=== PATIENT | male | born 1940 | race Caucasian/White ===

== ENCOUNTER 2019-10-25 12:20 | Outpatient (CLI) | payer MEDICARE, BC, SELFPAY ==
--- NOTE | ~2019-10-25 | XR_ITS ---
XR chest 2V w apical lordotic DATE: 10/25/2019 13:03 INDICATION: Cough. Chronic sinusitis. TECHNIQUE: PA and lateral views, apical lordotic view of the apices COMPARISON: 04/13/2019 PA and lateral chest FINDINGS: No pulmonary infiltrate or consolidation. Heart size appears within normal range is aortic calcification and mild unfolding. No hilar or medias tinal enlargement. No pleural effusion or pulmonary vascular congestion or pneumothorax is detected. Mild left apical capping. Scoliosis and degenerative change of the thoracic and lumbar spine. IMPRESSION: No active cardiopulmonary disease or significant change since 04/13/2019 Reviewed, dictated and finalized at Location A. Reviewed, dictated and finalized at location B. CAL SUPPORT SPECIALIST IMPRESSION: No active cardiopulmonary disease or significant change since 2018
--- NOTE | ~2019-10-25 | XR_ITS ---
XR sinus <3V DATE: 10/25/2019 13:03 INDICATION: Cough, chronic sinusitis TECHNIQUE: 5 views COMPARISON: None FINDINGS: The frontal sinuses are minimally developed. The ethmoid air cells, maxillary and sphenoid sinuses appear normally developed and aerated. The mastoid air cells appear normally developed and ae rated. Prominent rightward deviation of the nasal septum. IMPRESSION: Clear paranasal sinuses and mastoid air cells Reviewed, dictated and finalized at location B. OMER FACILITIES SUPERVISOR
[2019-10-27 21:16] LABS: Immunoglobulin A 334 mg/dL (70-320); Immunoglobulin G 940 mg/dL (600-1540); Immunoglobulin M 67 mg/dL (50-300)
[2019-10-28 05:25] LABS: Immunoglobulin E 544 kU/L (<=114)
== END 2019-10-25 12:21 | disposition home or self-care (01) ==
LOC: ANHIMG 12:35
PROVIDERS: PCP Internal Medicine; Visit Provider Internal Medicine
DX: J32.9 Chronic sinusitis, unspecified (principal); R05 Cough; J34.89 Other specified disorders of nose and nasal sinuses
CPT/HCPCS: 36415; 70210; 71047; 82784; 82785

== ENCOUNTER 2020-11-15 12:47 | Outpatient (CLI) | payer MEDICARE, BC, SELFPAY ==
--- NOTE | 2020-11-15 | ECHO_ITS ---
Patient Info Name: Nii Vital Age: 80 years : 1940 Gender: Male Exam Date: 11/15/2020 1:30 PM Exam Location: [facility] Patient Status: Outpatient Admit Date: 11/15/2020 Staff Ordering Physician: Harjeet Greene MD Senior Medical Technologist: Jacqueline Ramesh RCS Attending Provider: Harjeet Greene MD Exam Type: CA echo doppler color flow Study Info Indications R00.2 - Palpitations Complete two-dimensional, color flow and Doppler transthoracic echocardiogram is performed. Summary 1. Left ventricular chamber dimension is normal. 2. Left ventricular systolic function is normal, estimated at 60-65%. 3. There is mildly increased left ventricular wall thickness. 4. The left ventricular diastolic function is grade I diastolic dysfunction. 5. E/e' 12 is mildly elevated. 6. Left atrial chamber dimension is mildly enlarged. 7. There is mild aortic valve sclerosis. 8. There is mild aortic valve regurgitation. 9. No pulmonary hypertension, estimated pulmonary arterial systolic pressure is 34 mmHg. Left Ventricle E/e' 12 is mildly elevated. Left ventricular chamber dimension is normal. Left ventricular systolic function is normal, estimated at 60-65%. There is mildly increased left ventricular wall thickness. The left ventricular diastolic function is grade I diastolic dysfunction. Right Ventricle Right ventricular chamber dimension is normal. Right ventricular systolic function is normal. Left Atria Left atrial chamber dimension is mildly enlarged. Right Atria Right atrial chamber dimension is normal. Aortic Valve The aortic valve is trileaflet. There is mild aortic valve sclerosis. There is no aortic valve stenosis. There is mild aortic valve regurgitation. Pulmonic Valve There is no pulmonic regurgitation. Mitral Valve There is no mitral valve stenosis. There is no mitral valve regurgitation. Tricuspid Valve There is no tricuspid valve regurgitation. No pulmonary hypertension, estimated pulmonary arterial systolic pressure is 34 mmHg. Pericardium/Pleural There is no pericardial effusion. Inferior Vena Cava Normal inferior vena cava with >50% collapse upon inspiration consistent with normal right atrial pressure, 5 mmHg. Aorta The aortic root size at the sinus of Valsalva is normal. Left Ventricular Outflow Tract Name Value Normal LVOT 2D LVOT Diameter 2.0 cm LVOT Doppler LVOT Peak Gradient 4 mmHg LVOT Mean Gradient 2 mmHg LVOT VTI 24 cm LVOT VTI/AV VTI Ratio 0.9 LVOT Stroke Volume 74 ml LVOT CO 4.8 l/min LVOT CI 1.9 l/min/m2 Pulmonic Valve Name Value Normal RVOT Doppler RVOT Peak Gradient 2 mmHg PV D
--- NOTE | 2020-11-15 15:44 | ECHO_ITS ---
Patient Info Name: Nii Vital Age: 80 years : 1940 Gender: Male Ht: 69 in Wt: 196 lbs BSA: 2.10 m2 HR: 60 bpm BP: 172 / 76 mmHg Technical Quality: Fair Exam Date: 11/15/2020 1:26 PM Exam Location: [facility] Patient Status: Outpatient Admit Date: 11/15/2020 Staff Ordering Physician: Harjeet Greene MD Facilities Assistant: Jacqueline Ramesh RDCS Attending Provider: Harjeet Greene MD Exam Type: CA echo doppler color flow Study Info Complete two-dimensional, color flow and Doppler transthoracic echocardiogram is performed with contrast to opacify the left ventricle and to improve the deliniation of the left ventricle endocardial borders. Contrast/Agitated Saline Contrast/Ag. Saline: Definity Amount: --- ml Summary 1. Left ventricular chamber dimension is mildly enlarged. 2. Definity contrast administered improved wall motion interpretation. 3. Left ventricular systolic function is normal, estimated at 60-65%. 4. The left ventricular diastolic function is grade II diastolic dysfunction. 5. E/e' 7 is not elevated. 6. Left atrial chamber dimension is mildly enlarged. Left Ventricle Definity contrast administered improved wall motion interpretation. E/e' 7 is not elevated. Left ventricular chamber dimension is mildly enlarged. Left ventricular systolic function is normal, estimated at 60-65%. The left ventricular diastolic function is grade II diastolic dysfunction. Right Ventricle Right ventricular chamber dimension is normal. Right ventricular systolic function is normal. Left Atria Left atrial chamber dimension is mildly enlarged. Right Atria Right atrial chamber dimension is normal. Aortic Valve The aortic valve is trileaflet. There is no aortic valve stenosis. There is no aortic valve regurgitation. Pulmonic Valve There is no pulmonic regurgitation. Mitral Valve There is no mitral valve stenosis. There is no mitral valve regurgitation. Tricuspid Valve There is no tricuspid valve regurgitation. Pericardium/Pleural There is no pericardial effusion. Inferior Vena Cava Normal inferior vena cava with >50% collapse upon inspiration consistent with normal right atrial pressure, 5 mmHg. Aorta The aortic root size at the sinus of Valsalva is normal. Tricuspid Valve Name Value Normal Estimated PAP/RSVP RA Pressure 5 mmHg <=5 Report Signatures
== END 2020-11-15 12:48 | disposition home or self-care (01) ==
LOC: ANHCARD 12:48
PROVIDERS: PCP Internal Medicine; Visit Provider Internal Medicine
DX: R00.2 Palpitations (principal); I75.021 Atheroembolism of right lower extremity
CPT/HCPCS: 93306

== ENCOUNTER 2021-02-28 09:51 | Outpatient (CLI) | payer MEDICARE, BC, SELFPAY ==
[2021-02-28 10:12] LABS: Add Urine Microscopic? YES; Appearance Urine Clear (Clear); Bilirubin Urine Negative (Negative); Blood Urine Negative (Negative); Color Urine Yellow (Yellow); Glucose Urine UA Negative (Negative); Ketones Urine Negative (Negative); Leukocyte Esterase Ur Negative LEU/UL (Negative); Mucus Urine Rare /lpf; Nitrate Urine Negative (Negative); Protein Urine Negative (Negative); RBC Urine 0-2 /hpf (0-2); Specific Grav Ur 1.013 (1.001-1.035); Squamous Epithelial Cell Urine Rare /hpf (Few); Urobilinogen Urine Negative mg/dL (<2.0); WBC Urine 0-3 /hpf
== END 2021-02-28 09:52 | disposition home or self-care (01) ==
PROVIDERS: PCP Internal Medicine; Visit Provider Internal Medicine
DX: R39.9 Unspecified symptoms and signs involving the genitourinary system (principal)
CPT/HCPCS: 81001

== ENCOUNTER 2021-03-16 19:12 | Emergency (ER) | payer MEDICARE, BC, SELFPAY ==
[2021-03-16] VITALS (11 sets, daily range): BP systolic 136–219; BP diastolic 63–89; PULSE 75–91; RESP 15–32; TEMP 37.7; O2SAT 96–99
--- NOTE | ~2021-03-16 | XR_ITS ---
XR chest 1V portable 03/16/2021 22:39 Indication: Fever and nausea. Hypertension. Prostate cancer. Procedure: AP portable chest Comparison: Comparison to multiple prior studies sequentially, with oldest reviewed study dated 11/2013. Findings: Heart size is normal. No focal air space disease, pulmonary edema, pleural effusion or susp ected pneumothorax. Shallow inspiration with crowding of the pulmonary vessels. Impression: 1: No acute cardiopulmonary disease. Reviewed, dictated and finalized at location A. Impression: 1: No acute cardiopulmonary disease.
[2021-03-16 19:35] LABS: Basophils Percent Auto 0.4 % (0.2-1.2); Eosinophils Absolute Auto 0.1 K/mm3 (0-0.3); Hematocrit 46.1 % (42.0-52.0); Hemoglobin 14.9 g/dL (14.0-18.0); Immature Granulocyte Absolute 0.02 K/mm3 (0.00-0.031); Immature Granulocyte Percent A 0.2 % (0-0.5); Lymphocytes Absolute Auto 0.83 K/mm3 (0.9-3.2); Lymphocytes Percent Auto 8.8 % (18.3-44.2); Mean Corpuscular HGB Conc 32.3 g/dl (32-36); Mean Corpuscular Hemoglobin 31.2 pg (26-34); Mean Corpuscular Volume 96.4 fl (80-100); Mean Platelet Volume 10.9 fl (7.4-10.4); Monocytes Absolute Auto 0.3 K/mm3 (0.1-0.6); Monocytes Percent Auto 3.4 % (2.6-8.5); Neutrophils Absolute Auto 8.1 K/mm3 (1.3-6.7); Neutrophils Percent Auto 86.2 % (45.5-73.1); Platelet Count Result 187 k/mm3 (150-375); Red Blood Count 4.78 M/mm3 (4.6-6.20); Red Cell Distribution Width 13.8 % (11.5-14.5); White Blood Count 9.4 K/mm3 (4.5-10.0)
--- NOTE | 2021-03-16 19:36 | ECG_ITS ---
Measurements Intervals [place] Rate: 87 P: -13 CA: 148 QRS: -50 QRSD: 130 T: -7 QT: 382 QTc: 461 Interpretive Statements SINUS RHYTHM RIGHT BUNDLE BRANCH BLOCK VOLTAGE CRITERIA FOR LVH BASELINE ARTIFACT- I, II, III, AVR, AVL, AVF ABNORMAL ECG Electronically Signed On 03-21-2021 11:31:08 CDT by Benjamin Mcarthur D.O.
[2021-03-16 19:49] LABS: Alanine Aminotransferase 22 U/L (4-50); Albumin Level 4.7 g/dL (3.5-5.1); Alkaline Phosphatase 69 U/L (38-126); Anion Gap 8 mmol/L (8-16); Aspartate Amino Transferase 36 U/L (17-59); Bilirubin,Total 0.8 mg/dL (0.2-1.3); Blood Urea Nitrogen 20 mg/dL (9-20); Calcium 9.5 mg/dL (8.4-10.2); Carbon Dioxide 30 mmol/L (22-30); Chloride 104 mmol/L (98-107); Estimated CRCL calculation 45 ml/min; Estimated Glomerular Filt Rate > 60; Glucose 97 mg/dL (75-110); Lipase 251 U/L (23-300); Potassium 4.7 mmol/L (3.4-5.0); Sodium 142 mmol/L (137-145)
[2021-03-16 19:56] LABS: Add Urine Microscopic? YES; Appearance Urine Clear (Clear); Bilirubin Urine Negative (Negative); Blood Urine Negative (Negative); Color Urine Yellow (Yellow); Glucose Urine UA Negative (Negative); Ketones Urine Trace mg/dL (Negative); Leukocyte Esterase Ur Negative LEU/UL (Negative); Mucus Urine Rare /lpf; Nitrate Urine Negative (Negative); Protein Urine 2+ mg/dL (Negative); RBC Urine 0-2 /hpf (0-2); Specific Grav Ur 1.015 (1.001-1.035); Urobilinogen Urine Negative mg/dL (<2.0); WBC Urine 0-3 /hpf
--- NOTE | 2021-03-16 20:20 | PC.NURSE ---
Updated pt spouse by phone at this time.
--- NOTE | 2021-03-16 20:21 | ED.GENADULT ---
HPI - General Adult General Chief complaint: Nausea/Vomiting/Diarrhea Stated complaint: shakes, chattering teeth, nausea Time Seen by Provider: 03/16/21 19:46 Source: patient Mode of arrival: ambulatory Limitations: no limitations History of Present Illness HPI narrative: Patient is 80 years old white male came to the emergency room complaining of sudden onset of chills and teeth chattering started at 5 PM lasted for 1-1/2-hour then resolved. Patient also complaining of general weakness today. Patient reports a lot of physical activity today more than his normal daily activity. Patient made 4000 steps today walking the dog and running errands and hot weather today. Patient denies any fever, nausea, vomiting, chest pain, shortness of breath, sore throat, coughing, respiratory symptoms, back pain or urinary symptoms. Blood pressure on arrival was 219/89 which consider extremely high for the patient. Patient been vaccinated for COVID-19 months ago Related Data Home Medications Medication Instructions Recorded Confirmed atorvastatin 10 mg tablet 10 mg PO DAILY 08/08/19 11/06/20 carvedilol 6.25 mg tablet 6.25 mg PO Q12H 08/08/19 11/06/20 rivaroxaban 20 mg tablet 20 mg PO DAILY 08/08/19 11/06/20 cyanocobalamin (vitamin B-12) 1,000 mcg PO DAILY 07/03/20 11/06/20 1,000 mcg tablet melatonin 3 mg tablet mg PO 11/06/20 11/06/20 Allergies Allergy/AdvReac Type Severity Reaction Status Date / Time Sulfa (Sulfonamide AdvReac Unknown Diarrhea Verified 11/06/20 10:11 Antibiotics) Review of Systems Review of Systems: Narrative: CONSTITUTIONAL: Denies fever, chills, or sweats. EYES: Denies visual changes, redness, or discharge. ENT: Denies rhinorrhea, congestion, sore throat, or otalgia. CARDIOVASCULAR: Denies chest pain, palpitations, or edema. RESPIRATORY: Denies cough or dyspnea. GASTROINTESTINAL: Denies abdominal pain, nausea, vomiting, or diarrhea. GENITOURINARY: Denies dysuria or hematuria. SKIN: Denies rash or itching. MUSCULOSKELETAL: Denies back pain, joint pain, or myalgia. NEUROLOGIC: Denies headache, numbness, or weakness. PSYCHIATRIC: Denies anxiety or depression. [facility] Past Medical History Medical History Abnormal ankle brachial index (LIBAN) Abnormal finding of blood chemistry Acute DVT (deep venous thrombosis) Benign essential hypertension BMI 30.0-30.9,adult CAD (coronary artery disease) Cough DVT (deep venous thrombosis) Elevated PSA Encounter for Medicare annual wellness exam Encounter for routine adult health examination without abnormal findings Frequent sinus infections Heart palpitations Hyperlipidemia IGT (impaired glucose tolerance) On chcf drug therapy Pre-diabetes Prostate cancer Prostate cancer screening RBBB (right bundle branch block) Sinus pain Sore throat URI (upper respiratory infection) Vitamin D deficiency Family History Family History Father Family history of thoracic aortic aneurysm Social History Social History Smoking status: Never smoker Alcohol intake: never Exam Narrative: Exam Narrative: General appearance: Well-developed, well-nourished, looks weak Skin: Normal color Head: Normocephalic, nontraumatic Eyes: Clear conjunctiva ENT: Oropharynx normal, ears normal, nose normal Neck: Supple, nontender Chest and respiratory: Airway patent, no respiratory distress, no accessory muscle use Heart: Regular rate/rhythm Abdomen: Soft, nontender, no organomegaly, quiet bowel sounds Vascular: Normal peripheral pulses, normal capillary refill. Musculoskeletal: Normal range of motion, nontender back Neurologic: Alert and oriented ?3, CASH MANAGEMENT OFFICER is normal as tested, no gross motor deficit
[2021-03-16] MEDS: SODIUM CHLORIDE 0.9% IV 1,000 ML 999 ML IV CONT ×2 (20:39→20:40)
[2021-03-16 20:44] LABS: CRP < 0.5 mg/dL (<1.0)
[2021-03-16 20:59] LABS: Lactic Acid Reflex 1.3 mmol/L (0.7-2.1)
[2021-03-16 21:01] LABS: INR 1.6; Partial Thromboplastin Time 31.4 SECONDS (22.3-36.8); Prothrombin Time 19.9 Seconds (11.1-14.7)
[2021-03-16] MEDS: ACETAMINOPHEN 500 MG TABLET 1000 MG PO (21:18)
--- NOTE | 2021-03-16 22:00 | PC.NURSE ---
Lebetalol not required, cancelled order.
== END 2021-03-16 23:40 | disposition home or self-care (01) ==
PROVIDERS: Emergency Medicine; Emergency Provider Emergency Medicine; PCP Internal Medicine
DX: B34.9 Viral infection, unspecified (principal); T67.5XXA Heat exhaustion, unspecified, initial encounter; I10 Essential (primary) hypertension; I25.10 Atherosclerotic heart disease of native coronary artery without angina pectoris; E78.5 Hyperlipidemia, unspecified; Z86.718 Personal history of other venous thrombosis and embolism; R73.03 Prediabetes; Z85.46 Personal history of malignant neoplasm of prostate; E55.9 Vitamin D deficiency, unspecified; I45.10 Unspecified right bundle-branch block; R94.31 Abnormal electrocardiogram [ECG] [EKG]; Z79.01 Long term (current) use of anticoagulants; X30.XXXA Exposure to excessive natural heat, initial encounter
CPT/HCPCS: 36415; 71045; 80053; 81001; 83605; 83690; 85025; 85610; 85730; 86140; 87040; 87070; 87076; 87880; 93005; 96360; 96361; 99283; A9270; J7030

== ENCOUNTER 2021-08-26 12:24 | Outpatient (CLI) | payer MEDICARE, BC, SELFPAY ==
--- NOTE | ~2021-08-26 | XR_ITS ---
EXAMINATION: XR thoracic spine 3V DATE: 08/26/2021 12:54 INDICATION: Dorsalgia TECHNIQUE: AP, lateral and lateral swimmer's views of the thoracic spine were obtained. COMPARISON: 03/16/2021 FINDINGS: There are 40 degrees upper thoracic levoscoliosis. There is no fracture. Bone alignment is normal. The vertebral body heights are maintained. There is mild loss of intervertebral disc space he ight throughout the thoracic spine. Moderate spondylosis is noted in the visualized cervical spine. IMPRESSION: 1. Moderate thoracic spondylosis without acute findings. Reviewed, dictated and finalized at location A. RATORY ANIMAL CARETAKER
--- NOTE | ~2021-08-26 | XR_ITS ---
EXAMINATION: XR abdomen/kub 1V INDICATION: Back pain TECHNIQUE: Supine views of the abdomen were obtained on 2 radiographs. COMPARISON: CT, 07/12/2018 FINDINGS: No urolithiasis is identified. Phleboliths are noted in the pelvis. The bowel gas pattern i s normal. There is severe lumbar spondylosis. Mild osteoarthritis is noted in the hips. IMPRESSION: 1. No urolithiasis identified. Reviewed, dictated and finalized at location A. LOPMENTAL EDUCATION INSTRUCTOR
== END 2021-08-26 12:25 | disposition home or self-care (01) ==
PROVIDERS: PCP Internal Medicine; Visit Provider Internal Medicine
DX: M47.815 Spondylosis without myelopathy or radiculopathy, thoracolumbar region (principal); M16.0 Bilateral primary osteoarthritis of hip
CPT/HCPCS: 72072; 74018

== ENCOUNTER 2022-04-28 14:11 | Outpatient (CLI) | payer MEDICARE, BC, SELFPAY ==
--- NOTE | ~2022-04-28 | XR_ITS ---
XR thoracic spine 3V DATE: 04/28/2022 14:41 INDICATION: Scoliosis TECHNIQUE: AP, lateral and swimmer views COMPARISON: 08/26/2021 thoracic spine FINDINGS: There is reverse S-shaped thoracolumbar scoliosis, with moderate levoscoliosis of the upper thoracic spine, dextroscoliosis of the mid and lower thoracic spine and levoscoliosis of the lumbar spine . There is diffuse osteopenia. There is prominent degenerative disc disease in the lower cervical spine. There is mild degenerative spurring of the thoracic and to a greater extent lumbar spine. No fracture or dislocation or bone destruction of the thoracic spine is detected. No paraspinal soft tissue thickening is noted. IMPRESSION: Reverse S-shaped thoracolumbar scoliosis Osteopenia Prominent degenerative disc disease of the lower cervical spine Spurring of the thoracic and to a greater extent lumbar spine Reviewed, dictated and finalized at location B.
== END 2022-04-28 14:12 | disposition home or self-care (01) ==
PROVIDERS: PCP Internal Medicine; Visit Provider Internal Medicine
DX: M54.9 Dorsalgia, unspecified (principal); M41.85 Other forms of scoliosis, thoracolumbar region; M85.88 Other specified disorders of bone density and structure, other site; M50.30 Other cervical disc degeneration, unspecified cervical region; M77.8 Other enthesopathies, not elsewhere classified
CPT/HCPCS: 72072

== ENCOUNTER 2022-10-01 15:58 | Outpatient (CLI) | payer MEDICARE, BC, SELFPAY ==
[2022-10-01 16:54] LABS: Influenza A QL RT-PCR Negative (Negative); Influenza B QL RT-PCR Negative (Negative); SARS-CoV-2 RNA PCR Negative
== END 2022-10-01 15:59 | disposition home or self-care (01) ==
LOC: ANHLAB 16:00
PROVIDERS: PCP Internal Medicine; Visit Provider Internal Medicine
DX: R68.89 Other general symptoms and signs (principal); Z20.822 Contact with and (suspected) exposure to COVID-19
CPT/HCPCS: 87636

== ENCOUNTER 2024-03-17 08:24 | Outpatient (CLI) | payer MEDICARE, BC, SELFPAY ==
--- NOTE | ~2024-03-17 | XR_ITS ---
XR chest 2V Ordering provider: Harjeet Greene MD History: 83 years Male with . M54.9 - Dorsalgia, UPPER BACK PAIN, NO INJURY, CARDIAC HX . Comparison: March 16, 2021 FINDINGS: MEDIASTINUM: The cardiac silhouette is not enlarged. LUNGS: No infiltrates, effusions or pneumothorax. OTHER: No free air under the diaphragm. Degenerative changes of the spine. IMPRESSION: No acute cardiopulmonary pathology. Reviewed, dictated and finalized at location A.
[2024-03-17 09:58] LABS: Alanine Aminotransferase 19 U/L (6-50); Albumin Level 4.1 g/dL (3.5-5.1); Alkaline Phosphatase 56 U/L (38-126); Amylase 104 U/L (30-110); Anion Gap 6 mmol/L (4-12); Aspartate Amino Transferase 31 U/L (17-59); Bilirubin,Total 0.8 mg/dL (0.2-1.3); Blood Urea Nitrogen 18 mg/dL (9-20); Carbon Dioxide 29 mmol/L (22-30); Chloride 104 mmol/L (98-107); Estimated Glomerular Filt Rate > 60; Glucose 98 mg/dL (65-110); Lipase 113 U/L (23-300); Potassium 4.8 mmol/L (3.4-5.0); Sodium 139 mmol/L (137-145)
== END 2024-03-17 08:25 | disposition home or self-care (01) ==
PROVIDERS: PCP Internal Medicine; Visit Provider Internal Medicine
DX: M54.9 Dorsalgia, unspecified (principal); R10.11 Right upper quadrant pain
CPT/HCPCS: 36415; 71046; 80053; 82150; 83690

== ENCOUNTER 2024-03-26 08:20 | Outpatient (CLI) | payer MEDICARE, BC, SELFPAY ==
--- NOTE | ~2024-03-26 | US_ITS ---
EXAMINATION: US abdomen limited DATE: 03/26/2024 08:41 INDICATION: R10.11 - Right upper quadrant pain TECHNIQUE: Multiple grayscale and Doppler ultrasound images of limited portions of the abdomen were o btained. COMPARISON: None available. FINDINGS: Pancreas obscured by bowel gas. The liver is normal with normal echogenicity and echotextur e. No surface nodularity. Normal hepatopetal flow in the main portal vein. The gallbladder is normal with no abnormal wall thickening, pericholecystic fluid or stones. The common bile duct measures 3 mm . There was no sonographic Faust sign. IMPRESSION: Pancreas not visualized. Otherwise normal limited abdominal ultrasound findings. Reviewed, dictated and finalized at location K. IMPRESSION: Pancreas not visualized. Otherwise normal limited abdominal ultrasound findings .
== END 2024-03-26 08:21 ==
LOC: MICIMG 08:21
PROVIDERS: PCP Internal Medicine; Visit Provider Internal Medicine
DX: R10.11 Right upper quadrant pain (principal)
CPT/HCPCS: 76705

== ENCOUNTER 2024-09-29 08:34 | Outpatient (CLI) | payer MEDICARE, BC, SELFPAY ==
--- NOTE | ~2024-09-29 | XR_ITS ---
EXAMINATION: XR knee LT 3V DATE: 09/29/2024 09:06 INDICATION: Left knee pain. TECHNIQUE: 3 views of left knee including upright views were obtained. COMPARISON: None. FINDINGS: Alignment is normal. No fracture. There is severe osteoarthritis of lateral compartment and mild osteoarthritis of medial and patellofemoral compartments. No knee joint effusion. IMPRESSION: 1. Severe left knee osteoarthritis. Reviewed, dictated and finalized at location A. AL SCIENCES LECTURER
[2024-09-29 09:12] LABS: CRP < 0.5 mg/dL (<1.0); Uric Acid 4.6 mg/dL (3.5-8.5)
[2024-09-29 10:14] LABS: Erythrocyte Sedimentation Rate 13 mm/hr (0-20)
== END 2024-09-29 08:35 | disposition home or self-care (01) ==
PROVIDERS: PCP Internal Medicine; Visit Provider Internal Medicine
DX: I82.402 Acute embolism and thrombosis of unspecified deep veins of left lower extremity (principal); I82.409 Acute embolism and thrombosis of unspecified deep veins of unspecified lower extremity; G62.9 Polyneuropathy, unspecified; M17.12 Unilateral primary osteoarthritis, left knee; Z79.899 Other long term (current) drug therapy
CPT/HCPCS: 36415; 73562; 84550; 85652; 86140

== ENCOUNTER 2024-12-07 10:44 | Outpatient (CLI) | payer MEDICARE, BC, SELFPAY ==
[2024-12-07 11:22] LABS: Basophils Percent Auto 0.4 % (0.2-1.2); Eosinophils Percent Auto 0.4 % (0-4.4); Immature Granulocyte Absolute 0.01 K/mm3 (0.00-0.031); Immature Granulocyte Percent A 0.2 % (0-0.5); Lymphocytes Absolute Auto 1.03 K/mm3 (0.9-3.2); Lymphocytes Percent Auto 18.4 % (18.3-44.2); Mean Corpuscular HGB Conc 32.6 g/dl (32-36); Mean Corpuscular Hemoglobin 31.5 pg (26-34); Mean Corpuscular Volume 96.8 fl (80-100); Mean Platelet Volume 10.8 fl (7.4-10.4); Monocytes Absolute Auto 0.6 K/mm3 (0.1-0.6); Monocytes Percent Auto 11.4 % (2.6-8.5); Neutrophils Absolute Auto 3.9 K/mm3 (1.3-6.7); Neutrophils Percent Auto 69.2 % (45.5-73.1); Platelet Count Result 177 k/mm3 (150-375); Red Blood Count 4.44 M/mm3 (4.6-6.20); Red Cell Distribution Width 14.2 % (11.5-14.5); White Blood Count 5.6 K/mm3 (4.5-10.0)
[2024-12-07 11:41] LABS: Alanine Aminotransferase 28 U/L (6-50); Alkaline Phosphatase 56 U/L (38-126); Anion Gap 8 mmol/L (4-12); Aspartate Amino Transferase 35 U/L (17-59); Bilirubin,Total 0.5 mg/dL (0.2-1.3); Blood Urea Nitrogen 18 mg/dL (9-20); Calcium 8.9 mg/dL (8.4-10.2); Carbon Dioxide 30 mmol/L (22-30); Chloride 99 mmol/L (98-107); Cholesterol 130 mg/dL (0-200); Estimated Glomerular Filt Rate > 60; Glucose 93 mg/dL (65-110); HDL Direct 53 mg/dL; Sodium 137 mmol/L (137-145); Triglycerides 89 mg/dL (<150)
[2024-12-07 11:52] LABS: LDL Cholesterol Direct 39 mg/dL
[2024-12-07 12:03] LABS: Free T4 Free Thyroxine 1.11 ng/dL (0.78-2.19)
[2024-12-07 12:23] LABS: Hemoglobin A1C 5.6 % (<5.7)
--- OUTSIDE RECORDS SUMMARY | 2024-12-07 12:26 | XMS_ITS ---
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 His a right 2nd toe wound is almost healed and his discoloration is getting better. He is still having some pain of the toes. He remains on aspirin and Xarelto. He has no identifiable cause of the emboli in his arterial system. He underwent ECHO which was normal. Plan is to continue on the Xarelto an aspirin. I will have him follow up in 3 months but he can call sooner if there are any concerns. Assessment & Plan (11/08/2020 1:36 PM CANOE MAKER): Patient has blue toe syndrome of his bilateral lower extremities with small ulceration of his right lower extremity. He has palpable DP and PT pulses with normal ABIs. Plan will be for an echo which his primary physician is already ordered and will plan for a CTA of his chest abdomen pelvis with runoff. I discussed with him that likely he has some sore showering small emboli down to his toes and this is what we were looking for. We will discuss what the plan will be after these imaging studies are done to see if there is anything that needs to surgically be done for him. He will continue on the Xarelto an aspirin at this time. He understands and is willing to proceed. 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 He is maintained on Xarelto. Assessment & Plan (11/08/2020 1:29 PM CANOE MAKER): Patient is on Xarelto for recurrent DVTs. 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 Assessment & Plan (11/08/2020 1:34 PM CANOE MAKER): Followed by his PCP and controlled with diet and exercise. Hyperlipidemia 01/16/2012 Assessment & Plan (11/23/2020 1:02 PM CANOE MAKER): Followed by his PCP and on a statin at this time. Assessment & Plan (11/08/2020 1:34 PM CANOE MAKER): Followed by his PCP and controlled on a statin. Osteoarthritis 01/16/2012 Assessment & Plan (11/23/2020 1:01 PM CANOE MAKER): Followed by his PCP and says that he is only hurting mostly in the morning and does better as he is walking. Cough Shortness of breath Current Treatment and Therapy Plans No current plan information found. Past Treatment and Therapy Plans No past plan information found. Lifetime Dose Tracking * Chemical Lifetime Dose Automatic Entry Manual Entr y Air kerma at the reference point (Ka,r) 1,132 mGy 0 mGy 1,132 mGy DLP 565 mGycm 565 mGycm 0 mGycm Resolved Problems Problem Noted Date Diagnosed Date Resolved Date History of percutaneous coronary intervention 08/22/20 20 08/22/2020
--- OUTSIDE RECORDS SUMMARY | 2024-12-07 12:26 | XMS_ITS | Referral Summary ---
Author Organization [facility] al Address [address] [place] [address] Care Team Providers Care Meat Process Worker Name Role Phone Harjeet Greene MD Primary Care Provider [phone] Harjeet Greene MD Unavailable [phone] Marc Walls MD, Nii Gonzalez Unavailable [phone] Encounters Date Type Department Care Team Description 10/03/2024 Telephone [facility] Cardiology [address] [place] [address] Yesenia Alford MD from Last 3 Months Allergies Active Allergy Reactions Criticality Noted Date Comments Lactose Diarrhea Low 04/29/2012 . . Sulfa (Sulfonamide Antibiotics) Diarrhea Low 05/22 Medications artificial tears,hypromell ose, (GENTEAL) 0.2 % ophthalmic solutionIndicat ions:Dry Eye Administer 2 drops into both eyes as needed Active coenzyme Q10 100 mg capsule Take 1 capsule (100 mg total) by mouth nightly Active Xarelto 20 mg tablet TAKE 1 TABLET BY MOUTH DAILY 30 tablet 5 1 Active guaiFENesin (ROBITUSSIN) 400 mg tablet Take 1 tablet (400 mg total) by mouth TO KEEP EARS CLEAR Active atorvastatin (LIPITOR) 10 mg tablet Take 1 tablet (10 mg total) by mouth daily Active cyanocobalamin (Vitamin B-12) 1,000 mcg tabletIndicatio ns:Prevention of Vitamin B12 Deficiency Take 1 tablet (1,000 mcg total) by mouth daily Active [id number] -Lmfolate-algal 27 mg iron-1.13 mg-581.92 mg capsule Take by mouth Active melatonin tablet Take by mouth Active VITAMIN K2 ORAL Take by mouth Active furosemide (LASIX) 20 mg tablet Take 1 tablet (20 mg total) by mouth daily 90 tablet 2 5 Active Active Problems Problem Noted Date Diagnosed Date Heart failure with preserved ejection fraction 1 11/01/2020 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 His a [...] concerns. Assessment & Plan (11/08/2020 1:36 PM SCUBA DIVE TRAINING INSTRUCTOR): Patient has blue toe syndrome of his [...] to proceed. 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 He is maintained on Xarelto. Assessment & Plan (11/08/2020 1:29 PM SCUBA DIVE TRAINING INSTRUCTOR): Patient is on Xarelto for recurrent DVTs. 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 Assessment & Plan (11/08/2020 1:34 PM SCUBA DIVE TRAINING INSTRUCTOR): Followed by his PCP and controlled with diet and exercise. Hyperlipidemia 01/16/2012 Assessment & Plan (11/23/2020 1:02 PM SCUBA DIVE TRAINING INSTRUCTOR): Followed by his PCP and on a statin at this time. Assessment & Plan (11/08/2020 1:34 PM SCUBA DIVE TRAINING INSTRUCTOR): Followed by his PCP and controlled on a statin. Osteoarthritis 01/16/2012 Assessment & Plan (11/23/2020 1:01 PM SCUBA DIVE TRAINING INSTRUCTOR): Followed by his PCP and says that he is only hurting mostly in the morning and does better as he is walking. Cough Shortness of breath Resolved Problems Problem Noted Date Diagnosed Date Resolved Date History of percutaneous coronary intervention 08/22/20 20 08/22/2020 Immunizations Immunization Administration Dates Next Due Influenza, Unspecified 05/23/2019 Social History Tobacco Use Types Packs/Day Years Used Date Smoking Tobacco: Some Days Cigars Smokeless Tobacco: Never Tobacco Cessation:Ready to Q uit: Not Asked; Counseling Given: Not Answered Comments:occasional cigars Alcohol Use Standard Drinks/Week Comments Yes 4 (1 standard drink = 0.6 oz pur e alcohol) Sex and Gender Information Value Date Recorded Sex Assigned at Not on file Legal Sex Male 12:21 PM SCUBA DIVE TRAINING INSTRUCTOR Gender Identity Not on file Sexual Orientation Straight 08/17/2020 9: 43 AM SCUBA DIVE TRAINING INSTRUCTOR Last Filed Vital Signs Vital Sign Reading Time Taken Comments Blood Pressure 128/72 07/11/2024 12:00 PM CDT Pulse 59 07/11/2024 12:00 PM CDT Temperature 35.7 C (96.2 F) 03/30/2024 1:02 PM CDT Respiratory Rate 18 03/30/2024 1:02 PM CDT Oxygen Saturation 98% 07/11/2024 12:00 PM CDT Inhaled Oxygen Concentration - - Weight 83.7 kg (184 lb 9.6 oz) 07/11/2024 12:00 PM CDT Height 172.7 cm (5' 8 ) 07/11/2024 12:00 PM CDT Body Mass Index 28.07 07/11/2024 12:00 PM CDT Plan of Treatment Not on file Procedures Procedure Name Priority Date/Time Associated Diagnosis Comments LIPID PANEL Routine 10/16/2022 9:44 AM SCUBA DIVE TRAINING INSTRUCTOR BASIC METABOLIC PANEL Routine 08/28/2021 3:35 PM SCUBA DIVE TRAINING INSTRUCTOR Hypertension, unspecified type HEMOGLOBIN A1C Routine Gen Lab 02/17/2018 10:55 AM CDT from Last 3 Months or Most Recently Relevant to Health Maintenance Results * Lipid panel (10/16/2022 9:44 AM SCUBA DIVE TRAINING INSTRUCTOR) SCRIBED Cholesterol, Total 117 <200 [facility] SCRIBED HDL 40 >40 [facility] SCRIBED LDL 52 <100 [facility] SCRIB[facility] Triglycerides 174 <150 [facility] Blood Historical Provider LAB BLOOD ORDERABLES Edit ed Result - Final [facility] * Basic metabolic panel (08/28/2021 3:35 PM SCUBA DIVE TRAINING INSTRUCTOR) Glucose 92 64 - 99 mg/dL [facility] Comment: NONFASTING GLUCOSE RANGE = 64-199 mg/dL FASTING GLUCOSE 64 - 99 = NORMAL FASTING GLUCOSE 100 - 125 = IMPAIRED FASTING GLUCOSE FASTING GLUCOSE >=126 = PROVISIONAL DIAGNOSIS OF DIABETES Potassium 4.6 3.3 - 5.1 mmol/L [facility] Creatinine 1.12 0.70 - 1.30 mg/dL [facility] BUN 20 7 - 23 mg/dL [facility] Sodium 140 135 - 145 mmol/L [facility] Chloride 104 95 - 107 mmol/L [facility] CO2 Content 26 21 - 29 mmol/L [facility] Calcium 9.5 8.6 - 10.3 mg/dL [facility] eGFR 66.0 >60.0 mL/min/1.7 3 m2 [facility] Comment:eGFR updated to new CKD-EPI (2020) calculation without race on 08/05/21. Blood specimen (specimen) 08/28/2021 3:35 PM SCUBA DIVE TRAINING INSTRUCTOR 08/28/2021 11:54 PM SCUBA DIVE TRAINING INSTRUCTOR Cindy Thomas MD LAB BLOOD ORDERABLES Final Resul t [facility] * (ABNORMAL) Hemoglobin A1c (02/17/2018 10:55 AM CDT) Hgb A1C 5.7(H) 4.0 - 5.6 % [facility] Estimated Average Glucose 117 mg/dL [facility] Comment: The ADA recommends reporting an estimated Average Glucose (eAG) with all Hemoglobin A1c results using the equation derived from a study of 507 normal and diabetic adults. Minority populations were underrepresented and children were not included. (Diabetes Care 31:7696-2785, 2008). The eAG is not equivalent to a fasting glucose. Blood specimen (specimen) 02/17/2018 10:55 AM CDT 02/17/2018 12:44 PM CDT Narrative [facility] - 02/18/2018 5:37 AM CDT Terry Seo MD LAB BLOOD ORDERABLES Final R esult [facility] Department [place] [address] from Last 3 Months or Most Recently Relevant to Health Maintenance Insurance * Guarantor: Nii Vital Account Type Relation to Patient Date of Phone Billing Address Personal/Family Self [address] [place] [address] [place] [address] MEDICARE Member Subscriber Plan / Payer (Ef fective 2004-Present) Name:Nii Vital Member ID:[id number] Relation to Subscriber:Self Name:Nii Vital Subscriber ID:[id number] Payer ID:[id number] Group ID:Not on file Type:MEDICARE TRADITIONAL Address: [address] [address] [place] [address] [facility] Member Subscriber Plan / Payer ( fective 2022-Present) Name:Nii Vital Relation to Subscriber:Self Name:Nii Vital Payer ID:[id number] (NAIC) Group ID:[id number] Type:[facility] Address: [address] [place] [address] * Guarantor: Nii Vital Account Type Relation to Patient Date of Phone Billing Address Personal/Family Self 1940 [address] [place] [address] MEDICARE Member Subscriber Plan / Payer (Ef fective 2004-Present) Name:Nii Vital Member ID:[id number] Relation to Subscriber:Self Name:Nii Vital Subscriber ID:[id number] Payer ID:[id number] Group ID:Not on file Type:MEDICARE TRADITIONAL Address: [address] [place] [phone] MEDICARE Member Subscriber Plan / Payer (Ef fective 2004-Present) Name:Nii Vital Member ID:[id number] Relation to Subscriber:Self Name:Nii Vital Subscriber ID:[id number] Payer ID:[id number] Group ID:Not on file Type:MEDICARE TRADITIONAL Address: [address] [address] [facility] Member Subscriber Plan / Payer ( fective 2015-Present) Name:Nii Vital Relation to Subscriber:Self Name:Nii Vital Payer ID:[id number] (NAIC) Group ID:[id number] Type:[facility] Address: [address] [place] [address] MEDICARE Member Subscriber Plan / Payer (Ef fective 2004-Present) Name:AmanuelNii Member ID:[id number] Relation to Subscriber:Self Name:Nii Vital Subscriber ID:[id number] Payer ID:[id number] Group ID:Not on file Type:MEDICARE TRADITIONAL Address: [address] [address] [place] [address] [facility] FEDERAL Member Subscriber Plan / Payer (Ef fective 2022-Present) Name:Nii Vital Relation to Subscriber:Self Name:Nii Vital Payer ID:[id number] (NAIC) Group ID:[id number] Type:[facility] [place] Address: [address] [place] [address] * Guarantor: Nii Vital Account Type Relation to Patient Date of Phone Billing Address Personal/Family Self [address] [place] [address] [place] [address] Advance Directives For more information, please contact: [phone] * Full Code (Latest Code Status on File) Date Activated Date Inactivated Comments 08/22/2019 10:03 AM 08/22/2019 5:55 PM Care Teams Meat Process Worker Relationship Specialty Start Date End Date Harjeet Greene MD [address] [place] [address] PCP - General 11/20/20 Harjeet Greene MD [address] [place] [address] Internal Medicine 11/20/20 Nii Tran Jr., MD [address] [place] [address] Consulting Physician Urology 06/08/20
--- OUTSIDE RECORDS SUMMARY | 2024-12-07 12:26 | XMS_ITS | Encounter Summary ---
Author Organization [facility] Address [address] [place] [address] Care Team Providers Care Food Service Counter Clerk Name Role Phone Terry Seo MD Primary Care Provider [phone] Dwaine Pham MD Primary Care Provider [phone] Harjeet Greene MD Primary Care Provider [phone] Reason for Visit * Reason Onset Date Comments Order 04/30/2018 PT Encounter Details Date Type Department Care Team (Late st Contact Info) Description 04/30/2018 Telephone [facility] [address] [place] [address] Martin Hong MD [address] [place] [address] [place] [address] Order (PT) Social History Tobacco Use Types Packs/Day Years Used Date Smoking Tobacco: Never Smokeless Tobacco: Never Alcohol Use Standard Drinks/Week Comments No 0 (1 standard drink = 0.6 oz pur e alcohol) Sex and Gender Information Value Date Recorded Sex Assigned at Male 05/17/2023 1:27 PM CDT Gender Identity Male 05/17/2023 1:27 PM CDT Sexual Orientation Straight 05/17/2023 1: 27 PM CDT documented as of this encounter Miscellaneous Notes * Telephone Encounter - Yeny Gregg RN - 04/30/2018 3:26 PM CDT Niimalachi Vital's Dorcas called requesting PT script to be sent to [facility] fax [phone]. Pt had recent Hx of DVT, but Pt has been cleared by PCP for PT. She would like to add SI joint painto his problem list for PT. If possible, she would like to talk to Travis, her #[phone] documented in this encounter Plan of Treatment Not on file documented as of this encounter Visit Diagnoses Not on filedocumented in this encounter Care Teams Food Service Counter Clerk Relationship Specialty Start Date End Date Terry Seo MD [address] [place], [place] [address]DOROTHY FRANCIS [address] [place] [address] PCP - General 08/28/08 02/08/19 Dwaine Pham MD [address] [place], [place] [address]DOROTHY FRANCIS [address] [place] [address] PCP - General 02/09/19 03/13/24 Harjeet Greene MD [address] [place] [id number] PCP - General Internal Medicine 03/14/24 documented as of this encounter
--- OUTSIDE RECORDS SUMMARY | 2024-12-07 12:26 | XMS_ITS | Encounter Summary ---
Author Organization [facility] Address [address] [place] [address] Phone Care Team Providers Care Concentrator Operator Name Role Phone Harjeet Greene MD Primary Care Provider [phone] Harjeet Greene MD Unavailable [phone] Marc Walls MD, Nii Gonzalez Unavailable Encounter Details Date Type Department Care Team (Latest Contact Info) Description 10/02/2021 Orders Only [facility] Scanning, Provider Social History Tobacco Use Types Packs/Day Years Used Date Smoking Tobacco: Never Cigars Smokeless Tobacco: Never Comments:occasional cigars Alcohol Use Standard Drinks/Week Comments Yes 4 (1 standard drink = 0.6 oz pur e alcohol) Sex and Gender Information Value Date Recorded Sex Assigned at Not on file Legal Sex Male 12:21 PM PRODUCTION BORING MACHINE OPERATOR Gender Identity Not on file Sexual Orientation Straight 08/17/2020 9: 43 AM PRODUCTION BORING MACHINE OPERATOR documented as of this encounter Plan of Treatment Not on file documented as of this encounter Procedures Procedure Name Priority Date/Time Associated Diagnosis Comments SCAN - LABS 10/02/2021 documented in this encounter Results * SCAN - LABS (10/02/2021) us Provider Scanning Final Result documented in this encounter Visit Diagnoses Not on filedocumented in this encounter Care Teams Concentrator Operator Relationship Specialty Start Date End Date Harjeet Greene MD [address] [place] [address] PCP - General 11/20/20 Harjeet Greene MD [address] [place] [address] Internal Medicine 11/20/20 Nii Tran Jr., MD [address] [place] [address] Consulting Physician Urology 06/08/20 documented as of this encounter
--- OUTSIDE RECORDS SUMMARY | 2024-12-07 12:26 | XMS_ITS | Clinical Summary ---
Author Organization [facility] Address [address] [facility] [place] [address] Care Team Providers Care Aeronautical Engineering Teacher Name Role Phone Harjeet Greene MD Primary Care Provider [phone] Source Comments [facility],non-owned Affiliates and Associated Physician Practices is amultiple site organization consisting of ambulatory clinics and hospital sitesin [place], [place], [place] and [place]. This disclosure is being madepursuant to the Care Everywhere program and may not contain all information available regarding this patient. Last updated 18.[facility] Allergies Active Allergy Reactions Criticality Noted Date Comments Lactose Unknown Low 04/29/2012 . Lactose Other,Diarrhea Low 04/29/2012 . . . Sulfa Drugs Diarrhea Low 06/08/2020 Medications * Be aware that medications may not be up to date on this document. Alwaysverify current medications with the patient. Medication Sig Dispensed Refills Start Date End Date Status atorvastatin (LIPITOR) 10 MG tabletIndications:Gre ater trochanteric bursitis of left hip TK 1 T PO QD 3 02/28/2018 Ac tive PROAIR HFA 108 (90 BASE) MCG/ACT inhalerIndications:Gr eater trochanteric bursitis of left hip INL 1 TO 2 PFS PO PRF DIFFICULTY BREATHING 1 01/05/2018 Active XARELTO 20 MG tablet Take 1 (one) tablet by mouth once daily 04/13/2018 Active BEPREVE 1.5 % ophthalmic solution 12/11/2020 Activ e coenzyme Q10 100 MG capsule Take 100 (one hundred) mg by mouth once daily Active furosemide (Lasix) 20 MG tablet 09/07/2023 Active potassium chloride ER (Klor-Con M) 20 MEQ tablet Take 2 (two) tablets by mouth once daily Active Active Problems Problem Noted Date Diagnosed Date Shortness of breath 04/12/2024 Heart failure with preserved ejection fraction 1 11/01/2020 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 His a [...] call sooner if there are any concerns. 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 He is maintained on Xarelto. 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 Hypertension 01/16/2012 Overview (04/12/2024): Last Assessment & Plan: Followed by his PCP and controlled on his current medication regimen at this time. Osteoarthrosis 01/16/2012 Overview (04/12/2024): Last Assessment & Plan: Followed by his PCP and says that he is only hurting mostly in the morning and does better as he is walking. Resolved Problems Problem Noted Date Diagnosed Date Resolved Date Cough 04/12/2024 05/10/2024 Immunizations Name Administration Dates Next Due Covid Moderna primary monova lent 12+ yr 0.5mL 05/08/2021,11/20/2020,10/18/2020 INFLUENZA VACCINE 07/10/2020, 9,05/23/2019,2017,10/24/2016 INFLUENZA VACCINE, HIGH-DOSE , QUADR. (FLUZONE HIGH-DOSE QUADRIVALENT; 65Y+), 0.7 ML (HD-IIV4) 06/26/2021,05/16/2020 Pneumococcal Pcv13 Conj 07/29/2015 Family History Medical History Relation Name Comments Cancer Brother brain; Status: Cancer - Breast Sister Status: Aliv e Asthma Neg Hx CVA Neg Hx Cancer - Other Neg Hx Cancer - Skin, Melanoma Neg Hx Cancer - Skin, Non Melanoma Neg Hx Eczema Neg Hx Hemophilia Neg Hx Psoriasis Neg Hx Relation Name Status Comments Brother Sister Social History Tobacco Use Types Packs/Day Years Used Date Smoking Tobacco: Never Smokeless Tobacco: Never Alcohol Use Standard Drinks/Week Comments No 0 (1 standard drink = 0.6 oz pur e alcohol) Sex and Gender Information Value Date Recorded Sex Assigned at Male 05/17/2023 1:27 PM CDT Gender Identity Male 05/17/2023 1:27 PM CDT Sexual Orientation Straight 05/17/2023 1: 27 PM CDT Last Filed Vital Signs Vital Sign Reading Time Taken Comments Blood Pressure 157/72 06/23/2023 7:40 AM CDT Pulse 56 06/23/2023 7:40 AM CDT Temperature 36.4 C (97.6 F) 04/21/2018 1:52 PM CDT Respiratory Rate 20 04/21/2018 1:52 PM CDT Oxygen Saturation 98% 01/10/2015 9:40 AM CDT Inhaled Oxygen Concentration - - Weight 80.7 kg (178 lb) 04/21/2018 1:52 PM CDT Height 175.3 cm (5' 9 ) 04/21/2018 1:52 PM CDT Body Mass Index 26.29 04/21/2018 1:52 PM CDT Plan of Treatment Health Maintenance Due Date Last Done Comments MEDICARE AWV 12 MONTHS 1940 DTAP/TDAP/TD VACCINES (1 - Tdap) 1958 ZOSTER VACCINE (1 of 2) 1989 Respiratory Syncytial Virus (RSV) Vaccine Pt: or over 60 yrs (1 - 1-dose 75+ series) 2014 PNEUMOCOCCAL VACCINE 50+ (2 of 2 - PPSV23) 09/23/2015 07/29/2015 DIABETES RETINOPATHY SCREENING 04/12/2024 DIABETES-FOOT EXAM WITH MONOFILAMENT 04/12/2024 DIABETES-HGB A1C 04/12/2024 02/17/2018 COVID-19 VACCINE ( season) 2024 05/08/2021, 11/20/2020, 10/18/2020 INFLUENZA VACCINE (#1) 2024 , 07/10/2020, 05/16/2020, Additional history exists DEPRESSION SCREENING 09/21/2024 HEPATITIS B VACCINE Aged Out No longe r eligible based on patient's age to complete this topic HIB VACCINE Aged Out No longer eligi ble based on patient's age to complete this topic HPV VACCINE Aged Out No longer eligi ble based on patient's age to complete this topic MENINGOCOCCAL (Group B) VACCINE SHARED DECISION-MAKING Aged Out No longer eligible based on patient's age to complete this topic MENINGOCOCCAL GROUPS A/C/Y/W VACCINE Aged Out No longer eligible based on patient's age to complete this topic Care Teams Aeronautical Engineering Teacher Relationship Specialty Start Date End Date Harjeet Greene MD [address] [place] [address] PCP - General Internal Medicine 03/14/24
--- OUTSIDE RECORDS SUMMARY | 2024-12-07 12:26 | XMS_ITS | Clinical Summary ---
Author Organization [facility] al Address [address] [place] [address] Care Team Providers Care Music Professionals Name Role Phone Harjeet Greene MD Primary Care Provider [phone] Harjeet Greene MD Unavailable [phone] Marc Walls MD, Nii Gonzalez Unavailable Allergies Active Allergy Reactions Criticality Noted Date [...] (1,000 mcg total) by mouth daily Active [id number] -Lmfolate-algal 27 mg iron-1.13 mg-581.92 mg capsule [...] 10/22 Assessment & Plan (11/23/2020 1:01 PM SENIOR WEB DESIGNER): Patient has blue toe syndrome. His a [...] concerns. Assessment & Plan (11/08/2020 1:36 PM SENIOR WEB DESIGNER): Patient has blue toe syndrome of his [...] to proceed. 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 He is maintained on Xarelto. Assessment & Plan (11/08/2020 1:29 PM SENIOR WEB DESIGNER): Patient is on Xarelto for recurrent DVTs. 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 Assessment & Plan (11/08/2020 1:34 PM SENIOR WEB DESIGNER): Followed by his PCP and controlled with diet and exercise. Hyperlipidemia 01/16/2012 Assessment & Plan (11/23/2020 1:02 PM SENIOR WEB DESIGNER): Followed by his PCP and on a statin at this time. Assessment & Plan (11/08/2020 1:34 PM SENIOR WEB DESIGNER): Followed by his PCP and controlled on a statin. Osteoarthritis 01/16/2012 Assessment & Plan (11/23/2020 1:01 PM SENIOR WEB DESIGNER): Followed by his PCP and says that he is only hurting mostly in the morning and does better as he is walking. Cough Shortness of breath Resolved Problems Problem Noted Date Diagnosed Date Resolved Date History of percutaneous coronary intervention 08/22/20 20 08/22/2020 Encounters Date Type Department Care Team Description 10/03/[address] [facility] Cardiology [address] [place] [address] Yesenia Alford MD from Last 3 Months Immunizations Immunization Administration Dates Next Due Influenza, Unspecified 05/23/2019 Surgical History Surgery Date Site/Laterality Comments COLONOSCOPY EYE SURGERY CATARACT EXTRACTION LEG TENDON SURGERY Right OTHER SURGICAL HISTORY 09/21/2014 - 09/20/2015 Awake magnified KTP laser photoablation of right vocal process, granuloma EXPLORATORY LAPAROTOMY 09/21/2006 - 09/20/2007 INGUINAL HERNIA REPAIR Right PROSTATE BIOPSY 09/21/2016 - 09/20/2017 Medical History Medical History Date Comments Personal history of other di seases of the respiratory system Personal history of asthma - (Added by TW Conv) Personal history of transien t ischemic attack (TIA), and cerebral infarction without residual deficits History of transient cerebra l ischemia - (Added by TW Conv) Personal history of other di seases of the musculoskeletal system and connective tissue History of backache - (Added by TW Conv) Personal history of other ma lignant neoplasm of skin 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,ear (Added by TW Conv) Dysphonia Hoarseness - (Ad ded by TW Conv) Hx of blood clots Shortness of breath Hypertension Hyperlipidemia Asthma Cancer (HCC) Stroke (HCC) TIA DVT (deep venous thrombosis) (HCC) Bursitis GERD (gastroesophageal reflux disease) Coronary artery disease Family History Medical History Relation Name Comments Heart attack Brother Heart disease Father Family history of cardiac disorder - (Added by TW Conv) Cataracts Mother Heart attack Sister Macular degeneration Sister Anesthesia problems Neg Hx Relation Name Status Comments Brother Father Mother Sister Social History Tobacco Use Types Packs/Day [...] on file Legal Sex Male 12:21 PM SENIOR WEB DESIGNER Gender Identity Not on file Sexual Orientation Straight 08/17/2020 9: 43 AM SENIOR WEB DESIGNER Obstetrics History Last Filed Vital Signs Vital Sign Reading [...] 07/11/2024 12:00 PM CDT Plan of Treatment Health Maintenance Due Date Last Done Comments Albumin Creatinine Ratio, Urine 1940 Depression Screening 1940 Dilated Eye Exam 1940 Foot Exam 1940 DTaP/Tdap/Td Vaccine (1 - Tdap) 1950 Hepatitis B Screening 1957 Zoster Vaccine (1 of 2) 1989 Well Visit 65+ 2004 Pneumococcal vaccine 65+ (2 of 2 - PPSV23) 09/23/2015 07/29/2015 Hemoglobin A1C 08/20/2018 02/17/2018, 12/29/2016 Fall Risk Assessment 06/08/2021 06/08/2020 eGFR 08/28/2022 08/28/2021, 08/21, 08/05/2019 Lipid Panel 10/16/2023 10/16/2022, 01/21, 12/29/2016 Covid-19 Vaccine (4 - 2023-2 5 season) 2024 05/08/2021, 11/20/2020, 10/18/2020 Influenza Vaccine (#1) 2024 , 06/13/2019, 05/23/2019, Additional history exists Procedures Procedure Name Priority Date/Time Associated Diagnosis Comments LIPID PANEL Routine 10/16/2022 9:44 AM SENIOR WEB DESIGNER BASIC METABOLIC PANEL Routine 08/28/2021 3:35 PM SENIOR WEB DESIGNER Hypertension, unspecified type HEMOGLOBIN A1C Routine Gen Lab 02/17/2018 10:55 AM CDT from Last 3 Months or Most Recently Relevant to Health Maintenance Results * Lipid panel (10/16/2022 9:44 AM SENIOR WEB DESIGNER) SCRIBED Cholesterol, Total 117 <200 [facility] SCRIB[facility] HDL 40 >40 [facility] SCRIB[facility] LDL 52 <100 [facility] S[facility] Triglycerides 174 <150 [facility] Blood Mohan Nieves MD LAB BLOOD ORDERABLES Edit ed Result - Final [facility] * Basic metabolic panel (08/28/2021 3:35 PM SENIOR WEB DESIGNER) Glucose 92 64 - 99 mg/dL [facility] [...] 08/05/21. Blood specimen (specimen) 08/28/2021 3:35 PM SENIOR WEB DESIGNER 08/28/2021 11:54 PM SENIOR WEB DESIGNER Cindy Thomas MD LAB BLOOD ORDERABLES Final Resul t [facility] CORE [facility] * (ABNORMAL) Hemoglobin A1c (02/17/2018 10:55 AM CDT) Hgb A1C 5.7(H) 4.0 - 5.6 % [facility] Estimated Average Glucose 117 mg/dL [facility] Comment: The ADA recommends reporting an estimated Average Glucose (eAG) with all Hemoglobin A1c results using the equation derived from a study of 507 normal and diabetic adults. Minority populations were underrepresented and children were not included. (Diabetes Care 31:5133-9703, 2008). The eAG is not equivalent to a fasting glucose. Blood specimen (specimen) 02/17/2018 10:55 AM CDT 02/17/2018 12:44 PM CDT Narrative [facility] - 02/18/2018 5:37 AM CDT Terry Seo MD LAB BLOOD ORDERABLES Final R esult [facility] Department [place] [address] from Last 3 Months or Most Recently Relevant to Health Maintenance Insurance * Guarantor: Nii Vital Account Type Relation to Patient Date of Phone Billing Address Personal/Family Self [address] [place] [address] [place] [address] MEDICARE Member Subscriber Plan / Payer (Ef fective 2004-Present) Name:Nii Vital Member ID:[id number] Relation to Subscriber:Self Name:Nii Vital Subscriber ID:[id number] Payer ID:[id number] Group ID:Not on file Type:MEDICARE TRADITIONAL Address: [address] [address] [facility] Member Subscriber Plan / Payer (Ef fective 2022-Present) Name:Nii Vital Relation to Subscriber:Self Name:Nii Vital Payer ID:[id number] (NAIC) Group ID:[id number] Type:[employer] Address: [address] [place] [address] MEDICARE Member Subscriber Plan / Payer (Ef fective 2004-Present) Name:Nii Vital Member ID:[id number] Relation to Subscriber:Self Name:Nii Vital Subscriber ID:[id number] Payer ID:[id number] Group ID:Not on file Type:MEDICARE TRADITIONAL Address: [address] [address] [place] [address] MEDICARE Member Subscriber Plan / Payer ( fective 2004-Present) Name:AmanuelNii Member ID:[id number] Relation to Subscriber:Self Name:Nii Vital Subscriber ID:[id number] Payer ID:[id number] Group ID:Not on file Type:MEDICARE TRADITIONAL Address: [address] [address] [place] [address] [facility] MEDICARE Member Subscriber Plan / Payer (Ef fective 2004-Present) Name:Nii Vital Member ID:[id number] Relation to Subscriber:Self Name:Nii Vital Subscriber ID:[id number] Payer ID:[id number] Group ID:Not on file Type:MEDICARE TRADITIONAL Address: [address] [address] [place] [address] [facility] Member Subscriber Plan / Payer (Ef fective 2022-Present) Name:Nii Vital Relation to Subscriber:Self Name:Nii Vital Payer ID:[id number] (NAIC) Group ID:[id number] Type:[facility] Address: [address] [place] [address] Advance Directives For more information, please contact: [phone] * Full Code (Latest Code Status on File) Date Activated Date Inactivated Comments 08/22/2019 10:03 AM 08/22/2019 5:55 PM Care Teams Music Professionals Relationship Specialty Start Date End Date Harjeet Greene MD [address] [place] [address] PCP - General 11/20/20 Harjeet Greene MD [address] [place] [address] Internal Medicine 11/20/20 Nii Tran Jr., MD [address] [facility] [address] [facility] [address] [place] [address] Consulting Physician Urology 06/08/20
--- OUTSIDE RECORDS SUMMARY | 2024-12-07 12:26 | XMS_ITS | Continuity of Care Document ---
Author Organization [facility] Address [address] [place] [address] Phone Care Team Providers Care Can Dragger Name Role Phone Deidre OD OD, Uziel Unavailable Unavailabl e Medications Medication Instructions Dosage Effective Dates (start - stop) Status Comments PATADAY 0.2% OPHTH SOLUTION 2.5ML INSTILL 1 DROP INTO BOTH EYES EVERY MORNING - Active Procedures Procedure Date Office/outpatient Visit, Est Visual Field Examination(s) SCODI, Posterior Segment VEP Testing QuantifEye/Optomap Refraction Office/outpatient Visit, Est Special Eye Evaluation Visual Field Examination(s) SCODI, Posterior Segment Refraction QuantifEye/Optomap Eye Exam Established Pt SCODI, Posterior Segment Office/outpatient Visit, Est Optic Nerve Head Eval IPO Reduced 15% Special Eye Evaluation Visual Field Examination(s) Corneal Pachymetry Fundus Photography W/ Report Refraction QuantifEye Office/outpatient Visit, Est Eye Exam Established Pt Vision Svcs Frames Purchases Frames Deluxe Progressive Lens, Polycarb Office/outpatient Visit, Est No Script Refraction Visual Field Examination(s) Fundus Photography W/ Report QuantifEye Office/outpatient Visit, Est QuantifEye/Optomap Office/outpatient Visit, Est Refraction QuantifEye/Optomap Advance Directives Directive Yes / No Effective Date File Name No Information Encounters Encounter Description Practice Location Reason(s) For Visit Diagnoses Date Provider Providers Copied on Encounter [facility], [address] [place] [address] [address], [place], [place], [id number], tel:[phone] [facility] No Information 4 Mulqueeny OD Uziel. [address] [place], [place], [address], [place]. tel:[phone] Office/outpat ient Visit, [facility], [address] [place] [address] [address], [place], [place], [address], [place] tel:[phone] [facility] No Information 3 Mulqueeny OD Uziel. [address] [place], [place], [address], [place]. tel:[phone] Referring Provider: Uziel Jiang OD P, [address] [place], [address] . tel:[phone] Office/outpat ient Visit, [facility], [address] [place] [address] [address], [place], [address], tel:[phone] [facility] No Information 2 Mulqueeny OD Uziel. [address] [place], [place], [address], [place]. tel:[phone] Referring Provider: Uziel Rjracheal OD P, [address] [place], [address] . tel:[phone] [facility], [address] [place] [address] [address], [place], [place], [address], [place] tel:[phone] [facility] No Information Sep-2 7-201 1 Mulqueeny OD Uziel. [address] [facility], [place], [place], [address], [place]. tel:[phone] Referring Provider: Uziel Jiang OD P, [address] [facility], [place], [address] . tel:[phone] Office/outpat ient Visit, Est [facility], [address] [place] [address] [address], [place], [place], [address], [place] tel:[phone] [facility] No Information Nov-0 3-201 0 Mulqueeny OD Uziel. [address] [place], [place], [address], [place]. tel:[phone] Referring Provider: Uziel Rjracheal OD P, [address] [facility], [place], [address] . tel:[phone] Office/outpat ient Visit, [facility], [address] [place] [address] [address], [place], [place], [address], [place] tel:[phone] [facility] No Information Mar-0 8-201 0 Doisy Edward. [address], [place], [address], [place]. tel:[phone] [facility], [address] [place] [address] [address], [place], [place], [address], [place] tel:[phone] [facility] No Information Mar-0 4-201 0 Garcia OD Eric. [address] , [address], [place], [address], [place]. tel:[phone] [facility], [address], [place], [place], [address], [place] tel:[phone] [facility] No Information Oct-0 6-200 9 [facility] . [address] [facility], [address], [place], [place], [address], [place]. tel:[phone] Referring Provider: Uziel Jiang OD P, [address] [place] [address], [place], [address] . tel:[phone] sulting Provider: Naima Lemos, [address] [place] [address], [address]. tel:[phone] [facility], [address] [place] [address] [address], [place], [place], [address], [place] tel:[phone] [facility] No Information Sep-2 5-200 9 [employer] [facility] [employer] . [address] [facility], [address], [place], [place], [address], [place]. tel:[phone] Referring Provider: Uziel Jiang OD P, [address] [place] [address], [address] . tel:[phone] sulting Provider: Ruth Connolly, [address] [place] [address], [place], [address]. tel:[phone] Office/outpat ient Visit, [facility], [address], [place], [place], [address], [place] tel:[phone] [facility] No Information Sep-1 4-200 9 Deidre Triplett. [address] [place] [address], [place], [place], [address], [place]. tel:[phone] Referring Provider: Uziel Jiang OD P, [address] [place] [address], [address] . tel:[phone] Office/outpat ient Visit, [facility], [address], [place], [place], [address], tel:[phone] [facility] No Information Fei-3 0-200 8 Radhay OD Uziel. [address] [place], [place], [address], [place]. tel:[phone] Referring Provider: Uziel Jiang OD P, [address] [place], [address] . tel:[phone] Office/outpat ient Visit, [facility], [address], [place], [place], [address], tel:[phone] [facility] No Information Fei-2 6-200 7 Deidre OD Uziel. [address] [place], [place], [address], [place]. tel:[phone] Family History Family Member Type Diagnosis Age At Onset No Information Payers Payer name Insurance type Covered constitution party ID Authorjocea cyndimaylin(s) [place] BL [id number] BCBS [facility] BL [id number] [facility] [id number] Social History Type Description Quantity Date Captured Comments Sex Male Smoking Status No Information Chief Complaint And Reason For Visit No Information Reason For Referral Reason For Referral No Information History Of Present Illness Encounter Date Complaint History Of Prese nt Illness No Information Functional Status Date Functional Assessmen t No Information Instructions Date Instruction Additional Infor mation No Information Assessments Type Assessment Date No Information Patient Care Teams Name Effective Dates (start - stop) Status Members No Information
--- OUTSIDE RECORDS SUMMARY | 2024-12-07 12:27 | XMS_ITS | Continuity of Care Document ---
Author Organization [facility] Address [address] [place] [address] Phone Care Team Providers Care Train Dispatcher Name Role Phone Itzel Yadav Unavailable Unavailable Medications Medication Instructions Dosage Effective Dates (start - stop) Status Comments Percocet 5 mg-325 mg tablet take 1-2 tablet by oral route every 4-6 hours as needed - Active Bystolic 20 mg tablet - Active LIPITOR (unknown strength) Not Available - Active CELEBREX (unknown strength) Not Available - Active SINGULAIR (unknown strength) Not Available - Active ASPIRIN EC (unknown strength) Not Available - Active METFORMIN HCL (unknown strength) Not Available - Active FISH OIL (unknown strength) Not Available - Active Procedures Procedure Date Office/outpatient visit,[facility] 2017 Advance Directives Directive Yes / No Effective Date File Name No Information Encounters Encounter Description Practice Location Reason(s) For Visit Diagnoses Date Provider Providers Copied on Encounter Office/outpat ient visit,[facility], [address], [id number], tel:[phone] [facility] lumbar spine pain (chief complaint) Radiculopat hy, lumbar region Rudy Robbins. [address] [facility] [facility] [address], [place], [place], [address], [place]. tel:[phone] Referring Provider: Terry Hartmann, [facility] [facility] [address], [place], [address] . tel:[phone] Family History Family Member Type Diagnosis Age At Onset Father Problem (finding) Other Brother Problem (finding) Cancer, unknown Sister Problem (finding) Cancer, unknown Immunizations Vaccine Date Status Comments influenza, injectable, quadr ivalent, (3 years or older) administered Source: Other Provid er Payers Payer name Insurance type Covered green party ID Authoriza tion(s) [place] Part B MB [id number] Jose Crawford Cross Blue [facility] [id number] Social History Type Description Quantity Date Captured Comments Alcohol Use Details Unknown Caffeine Use Details Unknown Tobacco Use Status No Information Smoking Status Never smoker Non-Smoking Tobacco Use Details : No Details Available : No Details Available Sex Male Vital Signs Date / Time: Height Weight BMI Pulse Rate Blood Pressure Temperature Respiratory Rate Body Surface Area Head Circumference Head Circ. Percentile Wt./Josh. Percentile BMI percentile Pulse Ox Inhaled Ox 2:50 PM 69.00 in 83.915 kg (185.00 lbs) 27.3 2 kg/m rena (2) Chief Complaint And Reason For Visit From encounter dated '03/08/2018 14:20'. lumbar spine pain (chief complaint). Description: Mr Vital is a 77 year old male who complains of lumbar spine pain. He presents with pain. He states that the symptoms have been chronic non-traumatic.Pain restarted on 03/04/2018 without specfic injury while traveling out of town. He was evaluated byan out of town physician who prescribed oral steroids and also provided a left hip bursa cortisone injection. The symptoms occur constantly. The problem is unchanged. Currently the patient states that the symptoms are moderate. The symptoms occur continuously. The patient is experiencing pain in the following location: left buttock. He rates his worst pain as 10/10. Pain radiates from the left buttock to the anterior thigh to the knee. The symptoms are aggravated by bending, descending stairs, lifting, sitting, standing, walking and climbing stairs, pushing. Nii states that the symptoms are relieved by rest. In addition to lumbar spine pain the patient is also experiencing limping. The patient has had a previous MRI. He had MRI's of the left hip and lumbar spine at [facility] on 12/03/2017. MRI's were imported into the PACS system at . Prior pain medications include hydrocodone. Prior NSAIDs include unspecified NSAIDS. He had two lateral hip bursa injections in Jul 2017, November 2017 and on 03/04/2018. The most recent has offered minimal improvement at this time. He also had a sacroiliac injection in November 2017. Patient has not had any pertinent therapy for this condition. There were previous episodes. He experienced no previous injury. Reason For Referral Reason For Referral No Information History Of Present Illness Encounter Date Complaint History Of Pressuraj nt Illness lumbar spine pain Mr Vital is a [age] year old male who complains of lumbar spine pain. He presents with pain. He states that the symptoms have been chronic non-traumatic. Pain restarted on 03/04/2018 without specfic injury while traveling out of town. He was evaluated by an out of town physician who prescribed oral steroids and also provided a left hip bursa cortisone injection. The symptoms occur constantly. The problem is unchanged. Currently the patient states that the symptoms are moderate. The symptoms occur continuously. The patient is experiencing pain in the following location: left buttock. He rates his worst pain as 10/10. Pain radiates from the left buttock to the anterior thigh to the knee. The symptoms are aggravated by bending, descending stairs, lifting, sitting, standing, walking and climbing stairs, pushing. Nii states that the symptoms are relieved by rest. In addition to lumbar spine pain the patient is also experiencing limping. The patient has had a previous MRI. He had MRI's of the left hip and lumbar spine at [facility] on 12/03/2017. MRI's were imported into the PACS system at . Prior pain medications include hydrocodone. Prior NSAIDs include unspecified NSAIDS. He had two lateral hip bursa injections in Jul 2017, November 2017 and on 03/04/2018. The most recent has offered minimal improvement at this time. He also had a sacroiliac injection in November 2017. Patient has not had any pertinent therapy for this condition. There were previous episodes. He experienced no previous injury. Functional Status Date Functional Assessmen t No Information Instructions Date Instruction Additional Infor mation No Information Assessments Type Assessment Date assessment Radiculopathy, lumbar region Feb impression Pain is not from hip joint. Recom that he complete the oral prednisone as prescribed. Rx Percocet. Recom evaluation by Pain Management for treatment options. Mental Status Date Cognitive Assessment Orientation - [place] ed to time, place, person, situation. Patient Care Teams Name Effective Dates (start - stop) Status Members No Information
--- OUTSIDE RECORDS SUMMARY | 2024-12-07 12:27 | XMS_ITS | Encounter Summary ---
Author Organization [facility] Healthcare Address [address] [place] [address] Care Team Providers Care Escort Patients Name Role Phone Dwaine Pham MD Primary Care Provider [phone] Harjeet Greene MD Primary Care Provider [phone] Harjeet Greene MD Primary Care Provider [phone] Harjeet Greene MD Unavailable [phone] Marc Walls MD, Gerald L. Unavailable [phone] Encounter Details Date Type Department Care Team (Late st Contact Info) Description 05/17/2020 Telephone [facility] Radiology [address] [place] [address] Nii Tran Jr., MD [address] [facility] [address] [place] [address] Social History Tobacco Use Types Packs/Day Years Used Date Smoking Tobacco: Some Days Cigars Smokeless Tobacco: Never Comments:occasional cigars Alcohol Use Standard Drinks/Week Comments Yes 0 (1 standard drink = 0.6 oz pur e alcohol) Sex and Gender Information Value Date Recorded Sex Assigned at Not on file 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 Gender Identity Not on file Sexual Orientation Straight 08/17/2020 9: 43 AM MOLYBDENUM STEAMER OPERATOR documented as of this encounter Plan of Treatment Not on file documented as of this encounter Visit Diagnoses Not on filedocumented in this encounter Care Teams Escort Patients Relationship Specialty Start Date End Date Dwaine Pham MD [address] [facility] [address] [place] [address] PCP - General Endocrinology Diabetes & Metabolism 02/08/19 11/06/20 Harjeet Greene MD [address] [facility] [address] [place] [address] PCP - General Internal Medicine 11/07/20 11/19/20 Harjeet Greene MD [address] [facility] [address] [place] [address] PCP - General 11/20/20 Harjeet Greene MD [address] [facility] [address] [place] [address] Internal Medicine 11/20/20 Nii Tran Jr., MD [address] [facility] [address] [place] [address] Consulting Physician Urology 06/08/20 documented as of this encounter
== END 2024-12-07 10:45 | disposition home or self-care (01) ==
LOC: ANHLAB 10:47
PROVIDERS: PCP Internal Medicine; Visit Provider Internal Medicine
DX: R73.03 Prediabetes (principal); I10 Essential (primary) hypertension; I25.10 Atherosclerotic heart disease of native coronary artery without angina pectoris; E78.5 Hyperlipidemia, unspecified; E55.9 Vitamin D deficiency, unspecified; Z12.39 Encounter for other screening for malignant neoplasm of breast; Z79.899 Other long term (current) drug therapy
CPT/HCPCS: 36415; 80053; 80061; 82306; 83036; 84439; 84443; 85025

== ENCOUNTER 2025-05-29 12:55 | Outpatient (CLI) | payer MEDICARE, BC, SELFPAY ==
--- OUTSIDE RECORDS SUMMARY | 2025-05-29 13:06 | XMS_ITS ---
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 His a [...] concerns. Assessment & Plan (11/08/2020 1:36 PM STAFFING ASSOCIATE): Patient has blue toe syndrome of his [...] to proceed. 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 He is maintained on Xarelto. Assessment & Plan (11/08/2020 1:29 PM STAFFING ASSOCIATE): Patient is on Xarelto for recurrent DVTs. 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 Assessment & Plan (11/08/2020 1:34 PM STAFFING ASSOCIATE): Followed by his PCP and controlled with diet and exercise. Hyperlipidemia 01/16/2012 Assessment & Plan (11/23/2020 1:02 PM STAFFING ASSOCIATE): Followed by his PCP and on a statin at this time. Assessment & Plan (11/08/2020 1:34 PM STAFFING ASSOCIATE): Followed by his PCP and controlled on a statin. Osteoarthritis 01/16/2012 Assessment & Plan (11/23/2020 1:01 PM STAFFING ASSOCIATE): Followed by his PCP and says that he is only hurting mostly in the morning and does better as he is walking. Cough Shortness of breath Current Treatment and Therapy Plans No current plan information found. Past Treatment and Therapy Plans No past plan information found. Lifetime Dose Tracking * Chemical Lifetime Dose Automatic Entry Manual Entr y Fluoro Time 17.8 minutes 0 minutes 17.8 minutes Air kerma at the reference point (Ka,r) 1,132 mGy 0 mGy 1,132 mGy DLP 565 mGycm 565 mGycm 0 mGycm DAP 69.792 Gy-cm2 0 Gy-cm2 69.792 Gy-cm2 Resolved Problems Problem Noted Date Diagnosed Date Resolved Date History of percutaneous coronary intervention 08/22/20 20 08/22/2020 Acute deep vein thrombosis ( DVT) of femoral vein of left lower extremity 05/03/2018 01/30/2025
--- OUTSIDE RECORDS SUMMARY | 2025-05-29 13:06 | XMS_ITS | Encounter Summary ---
Author Organization [facility] Healthcare Address [address] [place] [address] Care Team Providers Care Minibus Driver Name Role Phone Dwaine Pham MD Primary Care Provider [phone] Harjeet Greene MD Primary Care Provider [phone] Harjeet Greene MD Primary Care Provider [phone] Harjeet Greene MD Unavailable [phone] Marc Walls MD, Gerald L. 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 Gender Identity Not on file Sexual Orientation Straight 08/17/2020 9: 43 AM CERAMIC ENGINEERING PROFESSOR documented as of this encounter Plan of Treatment Not on file documented as of this encounter Visit Diagnoses Not on filedocumented in this encounter Care Teams Minibus Driver Relationship Specialty Start Date End Date Dwaine Pham MD [address] [facility] [address] [place] [address] PCP - General Endocrinology Diabetes & Metabolism 02/08/19 11/06/20 Harjeet Greene MD [address] [facility] [address] [place] [address] PCP - General Internal Medicine 11/07/20 11/19/20 Harjeet Greene MD [address] [facility] [address] [place] [address] PCP - General 11/20/20 Harjeet Greene MD [address] [facility] [address] [place] [address] Internal Medicine 11/20/20 Nii Tran Jr., MD [address] [facility] [address] [place] [address] Consulting Physician Urology 06/08/20 documented as of this encounter
--- OUTSIDE RECORDS SUMMARY | 2025-05-29 13:06 | XMS_ITS | Encounter Summary ---
Author Organization [facility] Address [address] [place] [address] Care Team Providers Care System Support Administrator Name Role Phone Terry Seo MD Primary Care Provider [phone] Dwaine Pham MD Primary Care Provider [phone] Harjeet Greene MD Primary Care Provider [phone] Reason for Visit * Reason Onset Date Comments Order 04/30/2018 PT Encounter Details Date Type Department Care Team (Late st Contact Info) Description 04/30/2018 Telephone [facility] [address] [place] [address] Martin Hong MD [address] [place] [address] [place] [address] Order (PT) Social History Tobacco Use Types Packs/Day Years Used Date Smoking Tobacco: Never Smokeless Tobacco: Never Alcohol Use Standard Drinks/Week Comments No 0 (1 standard drink = 0.6 oz pur e alcohol) Sex and Gender Information Value Date Recorded Sex Assigned at Male 05/17/2023 1:27 PM CDT Legal Sex Male 5:41 PM DIRECTOR INTERNAL AUDIT Gender Identity Male 05/17/2023 1:27 PM CDT Sexual Orientation Straight 05/17/2023 1: 27 PM CDT documented as of this encounter Miscellaneous Notes * Telephone Encounter - Yeny Gregg RN - 04/30/2018 3:26 PM CDT [facility] called requesting PT script to be sent to [facility] fax [phone]. Pt had recent Hx of DVT, but Pt has been cleared by PCP for PT. She would like to add SI joint painto his problem list for PT. If possible, she would like to talk to Travis, her #[phone] documented in this encounter Plan of Treatment Not on file documented as of this encounter Visit Diagnoses Not on filedocumented in this encounter Care Teams System Support Administrator Relationship Specialty Start Date End Date Terry Seo MD [address] [place], [place] [address] [place] [address] PCP - General 08/28/08 02/08/19 Dwaine Pham MD [address] [place], [place] [address] [place] [address] PCP - General 02/09/19 03/13/24 Harjeet Greene MD [address] [place] [address] PCP - General Internal Medicine 03/14/24 documented as of this encounter
--- OUTSIDE RECORDS SUMMARY | 2025-05-29 13:06 | XMS_ITS | Encounter Summary ---
Author Organization 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 MINER Gender Identity Not on file Sexual Orientation Straight 08/17/2020 9: 43 AM PRODUCTION MINER documented as of this encounter Plan of Treatment Not on file documented as of this encounter Procedures Procedure Name Priority Date/Time Associated Diagnosis Comments SCAN - LABS 10/02/2021 documented in this encounter Results * SCAN - LABS (10/02/2021) us Provider Scanning Final Result documented in this encounter Visit Diagnoses Not on filedocumented in this encounter Care Teams Wood Heel Cementer Relationship Specialty Start Date End Date Harjeet Greene MD [address] [place] [address] PCP - General 11/20/20 Harjeet Greene MD [address] [place] [address] Internal Medicine 11/20/20 Nii Tran Jr., MD [address] [place] [address] Consulting Physician Urology 06/08/20 documented as of this encounter
--- OUTSIDE RECORDS SUMMARY | 2025-05-29 13:06 | XMS_ITS | Clinical Summary ---
Author Organization [facility] al Address [address] [place] [address] Care Team Providers Care Winery Cellar Hand Name Role Phone Harjeet Greene MD Primary Care Provider [phone] Harjeet Greene MD Unavailable [phone] Marc Walls MD, Nii Gonzalez Unavailable [...] (1,000 mcg total) by mouth daily Active [id number] -Lmfolate-algal 27 mg iron-1.13 mg-581.92 mg capsule Take by mouth Active melatonin tablet Take by mouth Active VITAMIN K2 ORAL Take by mouth Active furosemide (LASIX) 20 mg tablet Take 1 tablet (20 mg total) by mouth daily 90 tablet 2 5 Active albuterol HFA (PROVENTIL HFA,VENTOLIN HFA,PROAIR HFA) 90 mcg/actuation inhaler Inhale 2 puffs 5 Active celecoxib (CeleBREX) 100 mg capsule TAKE 1 CAPSULE BY MOUTH TWICE DAILY NEEDED FOR PAIN 5 Active chlorhexidine (PERIDEX) 0.12 % oral rinse 5 Active Active Problems Problem Noted Date Diagnosed Date Heart failure with preserved ejection fraction 1 11/01/2020 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 His a [...] concerns. Assessment & Plan (11/08/2020 1:36 PM TRANSIT MIX OPERATOR): Patient has blue toe syndrome of his [...] to proceed. 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 He is maintained on Xarelto. Assessment & Plan (11/08/2020 1:29 PM TRANSIT MIX OPERATOR): Patient is on Xarelto for recurrent DVTs. 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 Assessment & Plan (11/08/2020 1:34 PM TRANSIT MIX OPERATOR): Followed by his PCP and controlled with diet and exercise. Hyperlipidemia 01/16/2012 Assessment & Plan (11/23/2020 1:02 PM TRANSIT MIX OPERATOR): Followed by his PCP and on a statin at this time. Assessment & Plan (11/08/2020 1:34 PM TRANSIT MIX OPERATOR): Followed by his PCP and controlled on a statin. Osteoarthritis 01/16/2012 Assessment & Plan (11/23/2020 1:01 PM TRANSIT MIX OPERATOR): Followed by his PCP and says that he is only hurting mostly in the morning and does better as he is walking. Cough Shortness of breath Resolved Problems Problem Noted Date Diagnosed Date Resolved Date History of percutaneous coronary intervention 08/22/20 20 08/22/2020 Acute deep vein thrombosis ( DVT) of femoral vein of left lower extremity 05/03/2018 01/30/2025 Encounters Date Type Department Care Team Description 04/28/2025 1:30 PM CDT Office Visit [facility] [address] [facility] 8th [place] [address] [place] [address] Gary Cavazos MD Shortness of breath (Primary Dx) 04/28/2025 12:26 PM CDT - 04/28/2025 11:59 PM CDT Hospital Encounter [facility] [address] [facility] [address] [place] [address] Shortness of breath Discharge Disposition: Discharge to home or self care 04/28/2025 Telephone [facility] [address] [facility] 8th [place] [address] [place] [address] Anne Greco CPhT 04/10/2025 2:40 PM CDT Office Visit [facility] - [facility] [address] [place] [address] 11th [place] [address] [place] [address] Brittany Lepe MD Prostate cancer (HCC) (Primary Dx); Elevated PSA 04/04/2025 Telephone [facility] Pulmonary [address] [facility] 8th [place] [address] [place] [address] Vy Ross RN 04/04/2025 Telephone [facility] Pulmonary [address] [facility] 8th [place] [address] [place] [address] Vy Ross, ZAC 03/20/2025 5:06 PM CDT - 03/20/2025 11:59 PM CDT Hospital Encounter [facility] [address] [place] [address] Prostate cancer (HCC) Discharge Disposition: Discharge to home or self care 03/06/2025 1:20 PM CDT Office Visit [facility] - [facility] [address] [place] [address] 11th [place] [address] [place] [address] Brittany Lepe MD Prostate cancer (HCC) (Primary Dx); Elevated PSA from Last 3 Months Immunizations Immunization Administration [...] Stroke (HCC) TIA DVT (deep venous thrombosis) Bursitis GERD (gastroesophageal reflux disease) Coronary artery [...] on file Legal Sex Male 12:21 PM TRANSIT MIX OPERATOR Gender Identity Not on file Sexual Orientation Straight 08/17/2020 9: 43 AM TRANSIT MIX OPERATOR Obstetrics History Last Filed Vital Signs Vital Sign Reading Time Taken Comments Blood Pressure 125/64 04/28/2025 1:18 PM CDT Pulse 69 04/28/2025 1:18 PM CDT Temperature 36.6 C (97.8 F) 04/28/2025 1:18 PM CDT Respiratory Rate 18 04/28/2025 1:18 PM CDT Oxygen Saturation 98% 04/28/2025 1:18 PM CDT Inhaled Oxygen Concentration - - Weight 83.3 kg (183 lb 9.6 oz) 04/28/2025 1:18 P M CDT Height 175.3 cm (5' 9.02) 04/28/2025 1:18 PM CD T Body Mass Index 27.1 04/28/2025 1:18 PM CDT Plan of Treatment Health Maintenance Due Date Last Done Comments Albumin Creatinine Ratio, Urine 1940 Depression Screening 1940 Dilated Eye Exam 1940 Foot Exam 1940 DTaP/Tdap/Td Vaccine (1 - Tdap) 1950 Hepatitis B Screening 1957 Zoster Vaccine (1 of 2) 1989 Well Visit 65+ 2004 Pneumococcal vaccine 65+ (2 of 2 - PPSV23, PCV20, or PCV21) 09/23/2015 07/29/2015 Hemoglobin A1C 08/20/2018 02/17/2018, 12/29/2016 Fall Risk Assessment 06/08/2021 06/08/2020 eGFR 08/28/2022 08/28/2021, 08/21, 08/05/2019 Lipid Panel 10/16/2023 10/16/2022, 05, 12/29/2016 Covid-19 Vaccine (4 - 2024-2 6 season) 2025 05/08/2021, 11/20/2020, 10/18/2020 Influenza Vaccine (#1) 2025 0, 06/13/2019, 05/23/2019, Additional history exists Procedures Procedure Name Priority Date/Time Associated Diagnosis Comments PULMONARY FUNCTION TEST (PFT) Routine 04/28/2025 1:14 PM CDT Shortness of breath MRI PELVIS PROSTATE W WO CONTRAST Schedule Routine, Read Routine (OP Routine) 03/20/2025 7:52 PM CDT Prostate cancer (HCC) LIPID PANEL Routine 10/16/2022 9:44 AM TRANSIT MIX OPERATOR BASIC METABOLIC PANEL Routine 08/28/2021 3:35 PM TRANSIT MIX OPERATOR Hypertension, unspecified type HEMOGLOBIN A1C Routine Gen Lab 02/17/2018 10:55 AM CDT from Last 3 Months or Most Recently Relevant to Health Maintenance Results * Pulmonary Function Test - (04/28/2025 1:14 PM CDT) FVC PRE 2.11 L [facility] FVC %PRE PRED 62 % [facility] FEV1 PRE 1.58 L [facility] FEV1 %PRE PRED 64 % [facility] FEV1/FVC PRE 74.9 % [facility] FRC PL PRE 3.[address] [facility] FRC PL %PRE PRED 86 % [facility] RV PRE 2.58 L [facility] RV %PRE PRED 97 % [facility] TLC PRE 4.71 L [facility] TLC %PRE PRED 71 % [facility] Anatomical Region Laterality Modality PFT 04/28/2025 12:3 2 PM CDT Narrative 04/28/2025 3:45 PM CDT Table formatting from the original result was not included. [facility] Division of Pulmonary & Critical Care Medicine [address] [place] [address]; [place] [address]; [place] [id number]; [phone] Pulmonary Function Laboratory Pulmonary Stress Test Simple/Oxygen Assessment Patient: Nii Vital Date: 04/28/2025 : 1940 Ht: 67.7 IN Wt: 183.6 LBS Time (min) Distance (ft)/ Kim O2 L/M SpO2 HR Tiffany* BP FEV1 % Pred Rest: RA 95 74 0 125/68 1.58 64 % Walk/Bike: 1 RA 93 79 0 2 RA 93 90 0 3 RA 95 94 0 4 RA 95 94 0 5 RA 95 99 0 6 min 0 sec RA 93 95 0 Recovery: 1 RA 94 81 0 137/66 1.53 62% 3 RA 95 79 0 *Tiffany rate of perceived exertion (1-10 dyspnea scale) Jose Ramon, CHEST 2003; [id number]:1408 Walk Test Summary: Six Minute Walk Distance: 1110 ft Six-minute Walk Work [distance (m) x body wt (kg)]: 40459 kg.m (normal >60,000kg.m) Oxygen required to maintain SpO2 greater than 90% during six minutes of walkin L/M Comments: Interpretation: Breathing room air, SpO2 is normal at rest and during exercise sufficient to increase pulse, SpO2 falls but remains normoxemic . On this basis, SpO2 is adequate at rest breathing room air and while walking breathing room air. This level of exercise is associated with no significant change of FEV1. By signing this report, the attending pulmonary physician certifies that he/she has personally reviewed and interpreted the graphic and numerical data associated with this pulmonary function study and has reviewed and /or edited a preliminary draft report and agrees with the written final report. PFT performed at:->[facility] Adult PFT Lab- [facility] Procedure:->Spirometry Procedure:->Oxygen Assessment Titration Procedure:->Lung Volumes Lung Volumes via:->Pleth with Airway Resistance Pulmonary Function Test Interpretation SPIROMETRY: The FEV1 to FVC ratio is normal. The FEV1 and FVC are reduced in a pattern suggestive of a restrictive abnormality. The inspiratory loop is appropriate for the expiratory flow abnormality. LUNG VOLUMES: TLC measured by plethysmography is decreased. Impression: There is a mild restrictive ventilatory defect. Compared with most recent study, there has been no significant interval change. The attending pulmonary physician certifies a physician presence in the [facility] during the administration of aerosolized bronchodilator. The attending pulmonary physician certifies that he/she has reviewed and interpreted the graphic and numerical data of this pulmonary function study and agrees with the written final report. The lower limit of normal for PaO2 and %HbO2 is age dependent. However, the [facility] Pulmonary Function Laboratory defines hypoxemia as a PaO2 <56 mm Hg or a %HbO2 <89%. Starting on September of 2024 the [facility] Pulmonary Function Laboratory utilizes race neutral GLI Global normative equations. us Gary Cavazos MD PFT ORDERABLES Final Result * MRI Pelvis Prostate W WO Contrast (03/20/2025 7:52 PM CDT) Anatomical Region Laterality Modality Body N/A Magnetic Resonan ce 03/21/2025 11:0 6 AM CDT Impressions 03/21/2025 11:16 AM CDT A lesion in the left anterior transition zone at the mid gland to apex is at high suspicion for malignancy with an overall PI-RADS score of 4 appears similar in size compared to 05/19/2020. No definite extraprostatic extension (grade 0). No new lesion. Dictated by: Anton Hardwick MD The radiology attending physician has personally reviewed this study, and had reviewed and/or edited this written report and agrees with it. Electronically signed by: Gunjan Brown M.D. Narrative 03/21/2025 11:16 AM CDT EXAMINATION: MAGNETIC RESONANCE IMAGING OF THE PELVIS WITHOUT AND WITH CONTRAST HISTORY: Most recent PSA reported at 10.55 in January 2025, reported previously 9 in 2023. 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 TECHNIQUE: MR imaging of the prostate gland was performed with a torso phased array coil prior to and following administration of intravenous contrast. Protocol: Prostate 3T Contrast: Dotarem (gadoterate) 16 mL COMPARISON: MR prostate 05/19/2020, 02/26/2017 FINDINGS: Prostate volume: 42.7 cc The prostate transition zone is enlarged with benign prostatic hyperplasia. There is volume loss of the peripheral zone compatible with prostatitis. The prostate was assessed using the PI-RADS version 2.1 scoring system. The following lesions are of at least intermediate suspicion (PI-RADS 3 or greater): Lesion 1: Side: left Location: anterior Zone: transition zone Craniocaudal: Mid gland apex Hernandez images: series 10, image 40 Size: 0.35 mL; largest axial dimensions 1.3 x 0.4 cm Extraprostatic extension: - tumor contact length with prostate margin: 13 mm - margin bulge/irregularity: no - rectoprostatic angle obliteration: no - neurovascular bundle asymmetry: no - gross extraprostatic extension: no - overall EPE grade: 0 (no suspicion for pathologic EPE) T2WI score: 4 DWI score: 4 DCE: positive Overall PI-RADS v2.1 assessment: 4 Staging Information: No enlarged lymph nodes are identified. No suspicious osseous lesions are identified. Other findings: Bilateral hydroceles which are previously seen on 03/08/2017. Colonic diverticulosis. Procedure Note Gunjan Brown MD - 03/21/2025 EXAMINATION: MAGNETIC RESONANCE IMAGING OF THE PELVIS WITHOUT AND WITH CONTRAST HISTORY: Most recent PSA reported at 10.55 in January 2025, reported previously 9 in 2023. 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 TECHNIQUE: MR imaging of the prostate gland was performed with a torso phased array coil prior to and following administration of intravenous contrast. Protocol: Prostate 3T Contrast: Dotarem (gadoterate) 16 mL COMPARISON: MR prostate 05/19/2020, 02/26/2017 FINDINGS: Prostate volume: 42.7 cc The prostate transition zone is enlarged with benign prostatic hyperplasia. There is volume loss of the peripheral zone compatible with prostatitis. The prostate was assessed using the PI-RADS version 2.1 scoring system. The following lesions are of at least intermediate suspicion (PI-RADS 3 or greater): Lesion 1: Side: left Location: anterior Zone: transition zone Craniocaudal: Mid gland apex Hernandez images: series 10, image 40 Size: 0.35 mL; largest axial dimensions 1.3 x 0.4 cm Extraprostatic extension: - tumor contact length with prostate margin: 13 mm - margin bulge/irregularity: no - rectoprostatic angle obliteration: no - neurovascular bundle asymmetry: no - gross extraprostatic extension: no - overall EPE grade: 0 (no suspicion for pathologic EPE) T2WI score: 4 DWI score: 4 DCE: positive Overall PI-RADS v2.1 assessment: 4 Staging Information: No enlarged lymph nodes are identified. No suspicious osseous lesions are identified. Other findings: Bilateral hydroceles which are previously seen on 03/08/2017. Colonic diverticulosis. IMPRESSION: A lesion in the left anterior transition zone at the mid gland to apex is at high suspicion for malignancy with an overall PI-RADS score of 4 appears similar in size compared to 05/19/2020. No definite extraprostatic extension (grade 0). No new lesion. Dictated by: Anton Hardwick MD The radiology attending physician has personally reviewed this study, and had reviewed and/or edited this written report and agrees with it. Electronically signed by: Gunjan Brown M.D. Brittany Lepe MD IMG MRI PROCEDURES Final Res ult * Lipid panel (10/16/2022 9:44 AM TRANSIT MIX OPERATOR) SCRIBED Cholesterol, Total 117 <200 [facility] SCRIBED HDL 40 >40 [facility] SCRIB[facility] LDL 52 <100 [facility] SCRIB[facility] Triglycerides 174 <150 [facility] Blood Historical Provider LAB BLOOD ORDERABLES Edit ed Result - Final [facility] * Basic metabolic panel (08/28/2021 3:35 PM TRANSIT MIX OPERATOR) Glucose 92 64 - 99 mg/dL [facility] [...] 08/05/21. Blood specimen (specimen) 08/28/2021 3:35 PM TRANSIT MIX OPERATOR 08/28/2021 11:54 PM TRANSIT MIX OPERATOR us Cindy Thomas MD LAB BLOOD ORDERABLES Final Resul t [facility] * (ABNORMAL) Hemoglobin A1c (02/17/2018 10:55 AM CDT) Hgb A1C 5.7(H) 4.0 - 5.6 % [facility]NOTE 3] Estimated Average Glucose 117 mg/dL [facility] Comment: The ADA recommends reporting an estimated Average Glucose (eAG) with all Hemoglobin A1c results using the equation derived from a study of 507 normal and diabetic adults. Minority populations were underrepresented and children were not included. (Diabetes Care 31:1582-8217, 2008). The eAG is not equivalent to a fasting glucose. Blood specimen (specimen) 02/17/2018 10:55 AM CDT 02/17/2018 12:44 PM CDT Narrative [facility] - 02/18/2018 5:37 AM CDT us Terry Seo MD LAB BLOOD ORDERABLES Final R esult Performing Organization Address City[facility] Co de Phone Number [facility] [place] [address] from Last 3 Months or Most Recently Relevant to Health Maintenance Insurance * Guarantor: Nii Vital Account Type Relation to Patient Date of Phone Billing Address Personal/Family Self [address] [facility] [place] [address] MEDICARE Member Subscriber Plan / Payer (Ef fective 2004-Present) Name:Nii Vital Member ID:[id number] Relation to Subscriber:Self Name:Nii Vital Subscriber ID:[id number] Payer ID:[id number] Group ID:Not on file Type:MEDICARE TRADITIONAL Address: [facility] [address] [place] [address] BCBS FEDERAL Member Subscriber Plan / Payer (Ef fective 2022-Present) Name:Nii Vital Relation to Subscriber:Self Name:Nii Vital Payer ID:[id number] (NAIC) Group ID:[id number] Type:[facility] Address: [address] [place] [address] MEDICARE Member Subscriber Plan / Payer (Ef fective 2004-Present) Name:AmanuelNii Member ID:[id number] Relation to Subscriber:Self Name:Nii Vital Subscriber ID:[id number] Payer ID:[id number] Group ID:Not on file Type:MEDICARE TRADITIONAL Address: [address] [place] [id number] MEDICARE [facility] * Guarantor: Nii Vital Account Type Relation to Patient Date of Phone Billing Address Personal/Family Self [address] [place] [address] MEDICARE Member Subscriber Plan / Payer ( fective 2004-Present) Name:Nii Vital Member ID:[id number] Relation to Subscriber:Self Name:Nii Vital Subscriber ID:[id number] Payer ID:[id number] Group ID:Not on file Type:MEDICARE TRADITIONAL Address: [address] [address] [place] [address] [facility] Member Subscriber Plan / Payer ( fective 2022-Present) Name:Nii Vital Relation to Subscriber:Self Name:Nii Vital Payer ID:[id number] (NAIC) Group ID:[id number] Type:[facility] Address: [address] [place] [address] * Guarantor: Nii Vital Account Type Relation to Patient Date of Phone Billing Address Personal/Family Self [address] [place] [address] Advance Directives For more information, please contact: [phone] * Full Code (Latest Code Status on File) Date Activated Date Inactivated Comments 08/22/2019 10:03 AM 08/22/2019 5:55 PM Care Teams Winery Cellar Hand Relationship Specialty Start Date End Date Harjeet Greene MD [address] [facility] [address] [place], [place] [id number] PCP - General 3/2/21 Harjeet Greene MD [address] [place] [address] [place] [address] Internal Medicine 11/20/20 Nii Tran Jr., MD [address] [place] [address] Consulting Physician Urology 06/08/20
--- OUTSIDE RECORDS SUMMARY | 2025-05-29 13:06 | XMS_ITS | Clinical Summary ---
Author Organization [facility] Address [address] [facility] [place] [address] Care Team Providers Care Dry Cleaner Apprentice Name Role Phone Harjeet Greene MD Primary Care Provider [phone] Source Comments [facility],non-owned Affiliates and Associated Physician Practices is amultiple site organization consisting of ambulatory clinics and hospital sitesin [place], [place], [place] and [place]. This disclosure is being madepursuant to the Care Everywhere program and may not contain all information available regarding this patient. Last updated 18.[facility] Allergies Active Allergy Reactions Criticality Noted Date Comments Lactose Unknown Low 04/29/2012 . Lactose Other,Diarrhea Low 04/29/2012 . . . Sulfa Drugs Diarrhea Low 06/08/2020 Medications * Be aware that medications may not be up to date on this document. Alwaysverify current medications with the patient. atorvastatin (LIPITOR) 10 MG tabletIndications :Greater trochanteric bursitis of left hip TK 1 T PO QD 3 8 Active PROAIR HFA 108 (90 BASE) MCG/ACT inhalerIndication s:Greater trochanteric bursitis of left hip INL 1 TO 2 PFS PO PRF DIFFICULTY BREATHING 1 8 Active XARELTO 20 MG tablet Take 1 (one) tablet by mouth once daily 8 Active BEPREVE 1.5 % ophthalmic solution 1 Active coenzyme Q10 100 MG capsule Take 100 (one hundred) mg by mouth once daily Active furosemide (Lasix) 20 MG tablet 3 Active potassium chloride ER (Klor-Con M) 20 [...] any concerns. Coronary artery disease invo lving [place] coronary artery of [place] heart without angina pectoris 02/08/2020 History of [...] Diagnosed Date Resolved Date Cough 04/12/2024 05/10/2024 Encounters Date Type Department Care Team Description 04/18/2025 2:10 PM CDT Office Visit [facility] - Dermatology [address] [facility], [place] [address] Gloria Fowler, PA Actinic keratoses (Primary Dx); Lentigo; History of nonmelanoma skin cancer; Seborrheic keratoses 04/18/2025 Travel from Last 3 Months Immunizations Immunization Administration Dates Next Due Covid Moderna primary [...] PM CDT Legal Sex Male 5:41 PM INSOLE TAPER Gender Identity Male 05/17/2023 1:27 PM CDT [...] 1:52 PM CDT Height 175.3 cm (5' 9) 04/21/2018 1:52 PM CDT Body Mass Index 26.29 04/21/2018 1:52 PM CDT Plan of Treatment Health Maintenance Due Date Last Done Comments MEDICARE AWV 12 MONTHS 1940 DTAP/TDAP/TD VACCINES (1 - Tdap) 1958 ZOSTER VACCINE (1 of 2) 1989 Respiratory Syncytial Virus (RSV) Vaccine Pt: or over 60 yrs (1 - 1-dose 75+ series) 2014 PNEUMOCOCCAL VACCINE 50+ (2 of 2 - PPSV23, PCV20, or PCV21) 09/23/2015 07/29/2015 DIABETES RETINOPATHY SCREENING 04/12/2024 DIABETES-FOOT EXAM WITH MONOFILAMENT 04/12/2024 DIABETES-HGB A1C 04/12/2024 02/17/2018 DEPRESSION SCREENING 09/21/2024 COVID-19 VACCINE ( season) 2025 05/08/2021, 11/20/2020, 10/18/2020 INFLUENZA VACCINE (#1) 2025 , 07/10/2020, 05/16/2020, Additional history exists HEPATITIS B VACCINE Aged Out No longe [...] on patient's age to complete this topic Procedures Procedure Name Priority Date/Time Associated Diagnosis Comments MT DESTROY PREMALIG LESION, 2-14 Routine 04/18/2025 2:39 PM CDT Actinic keratoses MT DESTROY PREMALIG LESION, 1ST LESION Routine 04/18/2025 2:39 PM CDT Actinic keratoses from Last 3 Months Results * MT DESTROY PREMALIG LESION, 1ST LESION, MT DESTROY PREMALIG LESION, 2-14 (04/18/2025 2:39 PM CDT) Narrative Gloria Fowler PA - 04/18/2025 2:39 PM CDT Gloria Fowler PA 04/18/2025 2:40 PM Derm - Destruction Pre-malignant Date/Time: 04/18/2025 2:39 PM Performed by: Gloria Fowler PA Authorized by: Gloria Fowler PA Consent given by: Consent type: verbal Risks discussed with patient: scar formation, skin color change, need for further testing/treatment, pain, blistering and infection. Consent type: verbal Procedure details: Location information 5 facial lesions Number of standard lesions: 5 Total number of lesions: 5 Destruction method: chemical removal Wound dressing: none EBL: no blood loss Complications: none Wound care discussed with patient? yes Gloria YANCEY PROCEDURE/MINOR SURGICAL ORD ERABLES Final Result from Last 3 Months Insurance MEDICARE [facility] [place] [address] [facility] MEDICARE Care Teams Dry Cleaner Apprentice Relationship Specialty Start Date End Date Harjeet Greene MD [address] [place] [address] (work) PCP - General Internal Medicine 03/14/24
[2025-05-29 13:15] LABS: Add Urine Microscopic? NO; Appearance Urine Clear (Clear); Glucose Urine UA Negative (Negative); Leukocyte Esterase Ur Negative LEU/UL (Negative); Nitrate Urine Negative (Negative); Specific Grav Ur 1.016 (1.001-1.035)
== END 2025-05-29 12:56 | disposition home or self-care (01) ==
LOC: ANHLAB 12:56
PROVIDERS: PCP Internal Medicine; Visit Provider Internal Medicine
DX: R42 Dizziness and giddiness (principal); I10 Essential (primary) hypertension
CPT/HCPCS: 81003